=== PATIENT | female | born 1995 | race Native Hawaiian/Other Pacific Islander ===

== ENCOUNTER 2016-11-17 17:04 | Inpatient (IN) | payer OTHER ==
[2016-11-17] MEDS ORDERED: Sodium Chloride 0.9% 1,000 ML IV STA (17:37)
[2016-11-17] MEDS ORDERED: Famotidine 20mg/50ml 20 MG/50 ML BAG IV STA (17:37)
[2016-11-17] MEDS ORDERED: cefTRIAXone 1 gm 1 GM/100 ML BAG IV STA (17:42)
--- NOTE | 2016-11-17 17:47 | ED PDOC ---
Arrival/HPI - General Chief Complaint: GI Problem Time Seen by Provider: 11/17/16 17:16 Historian: EMS - History of Present Illness Narrative History of Present Illness (Text): 11/17/16 17:47 21 year old female, 3 months , >10 lb weight loss over 1 month, sent to the emergency department by OB for nausea and vomiting. Patient reports LMP August 24. Symptom Onset: Gradual Symptom Course: Unchanged Modifying Factors (Text): None Associated Symptoms (Text): None Past Medical History - Provider Review Nursing Documentation Reviewed: Yes - Psychiatric Hx Psychophysiologic Disorder: No Hx Substance Use: No Family/Social History - Physician Review Nursing Documentation Reviewed: Yes Family/Social History: Unknown Family HX Smoking Status: Never Smoked Hx Alcohol Use: No Hx Substance Use: No Allergies/Home Meds Allergies/Adverse Reactions: Allergies No Known Allergies Allergy (Verified 11/17/16 17:10) Home Medications: Home Meds Medication Instructions Recorded Confirmed No Known Home Med 11/17/16 11/17/16 Review of Systems - Physician Review All systems were reviewed & negative as marked: Yes Physical Exam - Physical Exam Narrative Physical Exam (Text): - Review of Systems Constitutional: Weight Change absent: Fatigue, Fevers Eyes: Normal ENT: Normal Respiratory: Normal absent: SOB, Cough, Sputum Cardiovascular: Normal absent: Chest pain, Palpitations, Syncope Gastrointestinal: Nausea, Vomiting absent: Abdominal pain, Diarrhea Genitourinary: Normal. absent: Dysuria, Frequency, Hematuria Musculoskeletal: Normal. absent: Arthralgias, Back Pain, Neck Pain Skin: Normal Neurological: Normal absent: Focal Weakness Endocrine: Normal Hemo/Lymphatic: Normal Psychiatric: Normal - Physical exam Patient appears cachectic, speaking full sentences without difficulty - Systems Exam Head: Present: Atraumatic, Normocephalic Pupils: Present: PERRL Extraocular Muscles: Present: EOMI Conjunctiva: Present: Normal Mouth: Present: Dry Mucous Membranes Neck: Present: Normal Range of Motion. No: MIDLINE TENDERNESS, Paraspinal Tenderness Respiratory/Chest: Present: Clear to Auscultation, Good Air Exchange. No: Respiratory Distress, Accessory Muscle Use, Tachypneic Cardiovascular: Present: tachy, Normal S1, S2, Peripheral Pulses Present. No: Murmurs Abdomen: Present: Normal Bowel Sounds, No: Tenderness, Peritoneal Signs, Rebound, Guarding Back: Present: Normal Inspection. No: Midline Tenderness, Paraspinal Tenderness Upper Extremity: Present: Normal Inspection. No: Cyanosis, Edema Lower Extremity: Present: Normal Inspection. No: Edema Neurological: Present: GCS=15, Speech Normal, cranial nerves II through XII fully intact with no cerebellar abnormality, neuro-sensory fully intact. No focal neurological deficits. Skin: Present: Warm, Dry, Normal Color. No: Rashes Lymphatic: Present: OX3, NI, NC Psychiatric: Present: Alert, Oriented x 3, Normal Insight, Normal Concentration Vital Signs Reviewed: Yes Vital Signs Temp Pulse Resp BP Pulse Ox 11/17/16 19:07 76 18 104/67 98 11/17/16 17:10 97.6 F 110 H 17 103/73 99 Temperature: Afebrile Blood Pressure: Normal Pulse: Tachycardic Respiratory Rate: Normal Appearance: Positive for: Non-Toxic, Comfortable Pain Distress: None Mental Status: Positive for: Alert and Oriented X 3 Medical Decision Making ED Course and Treatment: Impression: 21 year old female, 3 months , >10 lb weight loss over 1 month, sent to the emergency department by [employer] for nausea and vomiting. On physical exam, patient appears dehydrated and cachectic. Plan: -- Pepcid, Rocephin, Zofran -- IV fluids -- Labs -- Reassess and disposition Progress Notes: 11/17/16 17:42 Case discussed with patient's FENCE MAKER Dr. Mackenzie who states the patient was diagnosed with a UTI last week, and has not been able to tolerate PO due to nausea/vomiting. She states she has not been able to control symptoms with Diclegis. She states she agrees the patient needs to be admitted but was hesitant. Asked to give Zofran, fluids, Rocephin, and call her back with the results. 11/17/16 20:28 pt's K decreased k, mg, nacl ordered dw Dr. Mackenzie, accepted pt to her service on telemetry pt and agreeable with plan - Lab Interpretations Lab Results: 11/17/16 18:00 11/17/16 18:00 Lab Results 11/17/16 18:00: Phosphorus 4.0, Magnesium 2.3 H 11/17/16 18:00: Sodium 127 L, Potassium 2.9 L*, Chloride 86 L, Carbon Dioxide 24 , Anion Gap 20, BUN 7, Creatinine 0.4 L, Est GFR ( Amer) > 60, Est GFR ( Non-Af Amer) > 60, Random Glucose 89, Calcium 9.7, Total Bilirubin 1.5 H, AST 195 H, ALT 641 H, Alkaline Phosphatase 160 H, Total Protein 8.0, Albumin 4.2, Globulin 3.8, Albumin/Globulin Ratio 1.1 11/17/16 18:00: PT 11.9 H, INR 1.10 H, APTT 27.2 11/17/16 18:00: WBC 6.3, RBC 4.80, Hgb 11.8 L, Hct 33.5 L, MCV 69.8 L, MCH 24.6 L, MCHC 35.2, RDW 20.6 H, Plt Count 180, Gran % 74.6 H, Lymph % (Auto) 14.7 L, [place] % (Auto) 10.3 H, Eos % (Auto) 0.2 L, Baso % (Auto) 0.2, Gran # 4.73, Lymph # 0.9 L, [place] # 0.7 H, Eos # 0.0, Baso # 0.01 11/17/16 16:10: Urine Color Dark yellow, Urine Appearance Sl cloudy, Urine pH 6.5, Ur Specific [place] 1.025, Urine Protein 100 H, Urine Glucose (UA) Negative , Urine Ketones >=80, Urine Blood Small H, Urine Nitrate Negative, Urine Bilirubin Moderate H, Urine Urobilinogen >=8.0, Ur Leukocyte Esterase Trace H, Urine RBC 1 - 3, Urine WBC 5 - 10, Ur Epithelial Cells Many, Urine Bacteria Mod - RAD Interpretation Radiology Orders: 11/17/16 20:17 AGE [US] Stat - Medication Orders Current Medication Orders: Acetaminophen (Tylenol 325mg Tab) 650 mg PO Q6H PRN PRN Reason: Pain, Mild (1-3) Last Admin: 11/18/16 16:50 Dose: 650 mg Re-Assess: RAHEL Pain/Vitals Document 11/18/16 19:49 AP (Rec: 11/18/16 19:49 AP [facility] [id number]) Pain Reassessment Is This A Pain ReAssessment? Yes Presence of Pain Presence of Pain No Ceftriaxone Sodium (Rocephin 1 Gram Ivpb) 1 gm in 100 mls @ 100 mls/hr IVPB DAILY DOMINIQUE PRN Reason: Protocol Last Admin: 11/18/16 11:11 Dose: 100 mls/hr Dextrose/Sodium Chloride (Dextrose 5%/0.9% Ns 1000 Ml) 1,000 mls @ 125 mls/hr IV .Q8H [facility] Last Admin: 11/19/16 02:53 Dose: 125 mls/hr Ondansetron HCl (Zofran Inj) 8 mg IVP Q6H PRN PRN Reason: Nausea/Vomiting Propylthiouracil (Propylthiouracil) 50 mg PO TID [facility] Last Admin: 11/18/16 17:47 Dose: Not Given Non-Admin Reason: Patient Refused Discontinued Medications Bisacodyl (Dulcolax) 5 mg PO ONCE ONE Stop: 11/18/16 06:56 Last Admin: 11/18/16 07:07 Dose: 5 mg Famotidine (Pepcid 20mg/50ml Premix) 20 mg in 50 mls @ 100 mls/hr IV STAT STA Stop: 11/17/16 18:06 Last Admin: 11/17/16 17:55 Dose: 100 mls/hr Sodium Chloride (Sodium Chloride 0.9%) 1,000 mls @ 1,000 mls/hr IV .Q1H STA Stop: 11/17/16 18:36 Last Admin: 11/17/16 18:00 Dose: 1,000 mls/hr Ceftriaxone Sodium (Rocephin 1 Gram Ivpb) 1 gm in 100 mls @ 200 mls/hr IV STAT STA PRN Reason: Protocol Stop: 11/17/16 18:11 Last Admin: 11/17/16 18:14 Dose: 200 mls/hr Magnesium Sulfate/Dextrose (Magnesium Sulfate 1 Gm/100 Ml D5w) 1 gm in 100 mls @ 100 mls/hr IVPB ONCE ONE Stop: 11/17/16 20:35 Last Admin: 11/17/16 22:26 Dose: Potassium Chloride (Potassium Chloride 20 Meq/100 Ml) 20 meq in 100 mls @ 50 mls/hr IVPB Q2H [facility] Stop: 11/17/16 23:44 Last Admin: 11/17/16 22:53 Dose: 50 mls/hr Dextrose/Sodium Chloride (Dextrose 5%/0.9% Ns 1000 Ml) 1,000 mls @ 125 mls/hr IV .Q8H DOMINIQUE Stop: 11/18/16 20:29 Last Admin: 11/18/16 09:29 Dose: 125 mls/hr Sodium Chloride (Sodium Chloride 0.9%) 1,000 mls @ 999 mls/hr IV .Q1H1M STA Stop: 11/18/16 10:36 Last Admin: 11/18/16 11:00 Dose: 999 mls/hr Ondansetron HCl (Zofran Inj) 4 mg IVP STAT STA Stop: 11/17/16 17:44 Last Admin: 11/17/16 18:11 Dose: 4 mg Ondansetron HCl (Zofran Inj) 4 mg IVP Q4H DOMINIQUE Last Admin: 11/18/16 05:08 Dose: 4 mg Ondansetron HCl (Zofran Inj) 4 mg IVP Q8H PRN PRN Reason: Nausea/Vomiting Last Admin: 11/18/16 18:51 Dose: 4 mg Ondansetron HCl (Zofran Inj) 4 mg IVP STAT STA Stop: 11/18/16 23:28 Last Admin: 11/18/16 23:30 Dose: 4 mg Potassium Chloride (K-Dur 20 Meq Er Tab) 40 meq PO STAT STA Stop: 11/17/16 19:37 Last Admin: 11/17/16 20:13 Dose: 40 meq - Scribe Statement The provider has reviewed the documentation as recorded by the Javier Hammond Provider Scribe Attestation: All medical record entries made by the Javier were at my direction and personally dictated by me. I have reviewed the chart and agree that the record accurately reflects my personal performance of the history, physical exam, medical decision making, and the department course for this patient. I have also personally directed, reviewed, and agree with the discharge instructions and disposition. Disposition/Present on Arrival - Present on Arrival Any Indicators Present on Arrival: No History of DVT/PE: No History of Uncontrolled Diabetes: No Urinary Catheter: No History of Decub. Ulcer: No History Surgical Site Infection Following: None - Disposition Have Diagnosis and Disposition been Completed?: Yes Diagnosis: Hyperemesis gravidarum Disposition: HOSPITALIZED Disposition Time: 20:31 Patient Plan: Admission Patient Problems: Current Active Problems Problem Status Onset Hyperemesis gravidarum Acute Hypokalemia Acute Condition: FAIR
[2016-11-17 18:13] LABS: ADD MANUAL DIFF? NO
[2016-11-17 18:17] LABS: PH,URINE 6.5 (4.7-8.0); URINE BILIRUBIN MODERATE (NEGATIVE); URINE BLOOD SMALL (NEGATIVE); URINE GLUCOSE (UA) NEGATIVE (NEGATIVE); URINE KETONE >=80 mg/dL (NEGATIVE); URINE LEUKOCYTE ESTERASE TRACE Leu/uL (NEGATIVE); URINE PROTEIN 100 mg/dL (<30 mg/dL); URINE UROBILINOGEN >=8.0 E.U./dL (<1 E.U./dL)
[2016-11-17 18:17] LABS: BASO # 0.01 K/mm3 (0.0-2.0); BASO % 0.2 % (0.0-3.0); EOS % 0.2 % (1.5-5.0); GRAN # 4.73 (1.4-6.5); GRAN % 74.6 % (50.0-68.0); HEMATOCRIT 33.5 % (36.0-48.0); LYMPH # 0.9 (1.2-3.4); LYMPH % 14.7 % (22.0-35.0); MEAN CELL VOLUME 69.8 fL (80.0-105.0); MEAN CORPUSCULAR HEMOGLOBIN 24.6 pg (25.0-35.0); MEAN CORPUSCULAR HGB CONC 35.2 g/dl (31.0-37.0); MONO # 0.7 (0.1-0.6); MONO % 10.3 % (1.0-6.0); PLATELET COUNT 180 10^3/uL (120.0-450.0); RED CELL DISTRIBUTION WIDTH 20.6 % (11.5-14.5); WHITE BLOOD COUNT 6.3 10^3/ul (4.5-11.0)
[2016-11-17 18:22] LABS: URINE APPEARANCE SL CLOUDY (CLEAR); URINE COLOR DARK YELLOW (YELLOW)
[2016-11-17 18:29] LABS: INR 1.1 (0.93-1.08); PARTIAL THROMBOPLASTIN TIME 27.2 Seconds (23.7-30.8)
[2016-11-17 18:34] LABS: URINE EPITHELIAL CELLS MANY /hpf (0-5)
[2016-11-17 18:35] LABS: ALB/GLOB RATIO 1.1 (1.1-1.8); ALKALINE PHOSPHATASE 160 U/L (38-133); ALT/SGPT 641 U/L (7-56); AST/SGOT 195 U/L (15-39); BILIRUBIN,TOTAL 1.5 mg/dL (0.2-1.3); BLOOD UREA NITROGEN 7 mg/dL (7-21); CALCIUM 9.7 mg/dL (8.4-10.5); CARBON DIOXIDE 24 mmol/L (21-33); CHLORIDE 86 mmol/L (98-107); GFR AFRICAN-AMERICAN > 60; GLUCOSE,RANDOM 89 mg/dL (70-110); SODIUM 127 mmol/L (132-148)
[2016-11-17 18:35] LABS: URINE BACTERIA MOD (NEG)
[2016-11-17 18:41] LABS: POTASSIUM 2.9 mmol/L (3.6-5.0)
[2016-11-17] MEDS ORDERED: Potassium Chloride 20 mEq ER Tab PO STA (19:36)
[2016-11-17] MEDS ORDERED: Magnesium Sulfate 1 gm in D5W 1 GM/100 ML BAG IVPB ONE (19:36)
[2016-11-17 20:03] LABS: MAGNESIUM 2.3 mg/dL (1.7-2.2)
[2016-11-17] MEDS: Dextrose 5%/0.9% NS 1,000 ML IV SCH (20:36)
--- NOTE | 2016-11-17 22:07 | US ---
EXAM: US After First Trimester, Transabdominal CLINICAL HISTORY: 21 years old, female; Pain; complicated by abdominal or pelvic pain; Lower; First trimester; Gestational age or lmp: 12 weeks; ; Additional info: 12 weeks TECHNIQUE: Real-time transabdominal obstetrical ultrasound of the maternal pelvis and a second or third trimester with image documentation. COMPARISON: US - OB TRANSVAGINAL 10/05/2016 4:40:10 PM FINDINGS: Uterus: There is a gestational sac within the endometrial canal. [place] rump length measurement correlates with an estimated gestational age of 12 weeks. cardiac activity is seen with a heart rate of 156 beats per minute. Adnexa: Unremarkable evaluation of the right ovary. Left ovary not visualized. Free fluid: None. IMPRESSION: Limited evaluation of single live IUP as above. Followup imaging recommended.
[2016-11-18] MEDS: Dextrose 5%/0.9% NS 1,000 ML IV SCH ×3 (00:59→18:49)
[2016-11-18 01:56] LABS: BLOOD UREA NITROGEN 2 mg/dL (7-21); CALCIUM 8.4 mg/dL (8.4-10.5); CARBON DIOXIDE 24 mmol/L (21-33); CHLORIDE 99 mmol/L (98-107); GFR AFRICAN-AMERICAN > 60; GLUCOSE,RANDOM 122 mg/dL (70-110); POTASSIUM 3.4 mmol/L (3.6-5.0); SODIUM 129 mmol/L (132-148)
--- NOTE | 2016-11-18 05:56 | CP.PCM.PN ---
Subjective - Date & Time of Evaluation Date of Evaluation: 11/18/16 Time of Evaluation: 05:55 - Subjective Subjective: Patient was seen at bedside. Complained of LUQ and LLQ pain, mild, intermittent, no radiation. States that it was at 7 on 1-10 scale about 15 minutes ago when it began this time, now at 6 on 1-10 scale. States that it is getting better.Had similar pain in the past for which she did not do anything and it was relieved. Denies any nausea or vomiting now. No diarrhoea. Received Pepcid. Medical record was reviewed. This 21 year old [place] woman was admitted with hyperemesis gravidorum , hypokalemia. Has no significant PMH except fibroid, ovarian cyst. 100/63, 96% RA. Objective - Vital Signs/Intake and Output Vital Signs (last 24 hours): Temp Pulse Resp BP Pulse Ox 98.6 F 83 20 107/64 98 11/18/16 00:12 11/18/16 02:00 11/18/16 00:12 11/18/16 00:12 11/17/16 19:07 - Medications Medications: Current Medications Dextrose/Sodium Chloride (Dextrose 5%/0.9% Ns 1000 Ml) 1,000 mls @ 125 mls/hr IV .Q8H DOMINIQUE Stop: 11/18/16 20:29 Last Admin: 11/18/16 00:59 Dose: 125 mls/hr Ondansetron HCl (Zofran Inj) 4 mg IVP Q4H DOMINIQUE Last Admin: 11/18/16 05:08 Dose: 4 mg - Labs Labs: 11/18/16 01:05 PT 11.9 Seconds (9.9-11.8) H 11/17/16 18:00 INR 1.10 (0.93-1.08) H 11/17/16 18:00 APTT 27.2 Seconds (23.7-30.8) 11/17/16 18:00 - Constitutional Appears: Well, No Acute Distress - Head Exam Head Exam: ATRAUMATIC, NORMAL INSPECTION, NORMOCEPHALIC - Eye Exam Eye Exam: Normal appearance - ENT Exam ENT Exam: Mucous Membranes Dry - Neck Exam Neck Exam: Normal Inspection - Respiratory Exam Respiratory Exam: NORMAL BREATHING PATTERN - Cardiovascular Exam Cardiovascular Exam: absent: JVD - GI/Abdominal Exam GI & Abdominal Exam: Soft, Normal Bowel Sounds. absent: Tenderness - Rectal Exam Rectal Exam: Deferred - Extremities Exam Extremities Exam: Normal Inspection - Back Exam Back Exam: NORMAL INSPECTION - Neurological Exam Neurological Exam: Alert, Oriented x3 - Psychiatric Exam Psychiatric exam: Normal Affect, Normal Mood - Skin Skin Exam: Dry Assessment and Plan - Assessment and Plan (Free Text) Assessment: LUQ/LLQ pain. Hyperemesis Gravidorum. Hypokalemia. Dehydration. Plan: Placed a call to . Tylenol and dulcolax were ordered by . IV Zofran was discontinued. Zofran ODT was ordered. Continue present management.
[2016-11-18 06:44] LABS: BASO # 0.02 K/mm3 (0.0-2.0); BASO % 0.4 % (0.0-3.0); EOS % 0.8 % (1.5-5.0); GRAN # 3.07 (1.4-6.5); GRAN % 63.2 % (50.0-68.0); HEMATOCRIT 29.7 % (36.0-48.0); LYMPH # 1.3 (1.2-3.4); LYMPH % 26.1 % (22.0-35.0); MEAN CELL VOLUME 70.2 fL (80.0-105.0); MEAN CORPUSCULAR HEMOGLOBIN 24.1 pg (25.0-35.0); MEAN CORPUSCULAR HGB CONC 34.3 g/dl (31.0-37.0); MONO # 0.5 (0.1-0.6); MONO % 9.5 % (1.0-6.0); PLATELET COUNT 140 10^3/uL (120.0-450.0); RED CELL DISTRIBUTION WIDTH 21.3 % (11.5-14.5); WHITE BLOOD COUNT 4.9 10^3/ul (4.5-11.0)
[2016-11-18] MEDS ORDERED: Bisacodyl 5mg EC Tab PO ONE (06:55)
[2016-11-18 07:06] LABS: ADD MANUAL DIFF? NO; FREE T4 2.62 ng/dL (0.78-2.19)
[2016-11-18 07:20] LABS: THYROID STIMULATING HORMONE < 0.02 mIU/mL (0.46-4.68)
[2016-11-18 09:30] LABS: URINE BILIRUBIN NEGATIVE (NEGATIVE); URINE BLOOD TRACE-INTACT (NEGATIVE); URINE GLUCOSE (UA) NEGATIVE (NEGATIVE); URINE KETONE 15 mg/dL (NEGATIVE); URINE LEUKOCYTE ESTERASE NEGATIVE Leu/uL (NEGATIVE); URINE PROTEIN NEGATIVE mg/dL (<30 mg/dL)
[2016-11-18 09:30] LABS: BILIRUBIN,DIRECT 0.7 mg/dL (0.0-0.4); BILIRUBIN,TOTAL 0.8 mg/dL (0.2-1.3)
--- NOTE | 2016-11-18 09:30 | CP.PCM.HP ---
History of Present Illness - History of Present Illness History of Present Illness: 21 y/o @ 12.2 wks GA by First poonam [place] with severe nause and vomiting more htan 4 weeks unable to keep majority of po intake down. pt has failed oral diclegeis, zofran, vitmain b 6 therapy. pt is able to keep verylittle water and certain frutis and snack donw. pt reports nause the entire day with multple episodies of non bloody and non bilious vomiting all day. Pt seen in office and had more than 10 pound weight loss of past 4 weeks. pt reports feeling tired and weak, denies any bleeding, pain, lighthteandess, dizzyness, CP, SOB. Pt also states was seen [place] [facility] [place] dx with UTI but was unable to tolerate po antibitoc. Pt also reports severe constiatpion with straining last BM yesterday. OB: P0 FIELD AIDE: denie shx of abnormal pap, fibroids, ovarian cyst , STI PMH: dneies PSH: denies FHX: non contirubitory SHX: negateive etoh/tobacc/drugs MEDS: PNV NKDA Present on Admission - Present on Admission Any Indicators Present on Admission: No Review of Systems - Constitutional Constitutional: As Per HPI, Fatigue - EENT Nose/Mouth/Throat: As Per HPI - Cardiovascular Cardiovascular: As Per HPI - Respiratory Respiratory: As Per HPI - Gastrointestinal Gastrointestinal: As Per HPI - Genitourinary Genitourinary: As Per HPI - Reproductive: Female Reproductive:Female: As Per HPI - Menstruation Menstruation: As Per HPI Past Patient History - Infectious Disease Hx of Infectious Diseases: None - Past Medical History & Family History Past Medical History?: No Past Family History: Reviewed and not pertinent - Past Social History Smoking Status: Never Smoked Chewing Tobacco Use: No Cigar Use: No Alcohol: None Home Situation {Lives}: With Family - CARDIAC Hx Cardiac Disorders: No - PULMONARY Hx Respiratory Disorders: No - NEUROLOGICAL Hx Neurological Disorder: No - HEENT Hx HEENT Problems: No - RENAL Hx Chronic Kidney Disease: No - ENDOCRINE/METABOLIC Hx Endocrine Disorders: No - HEMATOLOGICAL/ONCOLOGICAL Hx Blood Disorders: No - INTEGUMENTARY Hx Dermatological Problems: No - MUSCULOSKELETAL/RHEUMATOLOGICAL Hx Musculoskeletal Disorders: No Hx Falls: No - GASTROINTESTINAL Hx Gastrointestinal Disorders: No - GENITOURINARY/GYNECOLOGICAL Hx Genitourinary Disorders: No - PSYCHIATRIC Hx Psychophysiologic Disorder: No Hx Substance Use: No - SURGICAL HISTORY Hx Surgeries: No Meds Allergies/Adverse Reactions: Allergies Allergy/AdvReac Type Severity Reaction Status Date / Time No Known Allergies Allergy Verified 11/17/16 17:10 Physical Exam - Head Exam Head Exam: ATRAUMATIC, NORMOCEPHALIC - Eye Exam Eye Exam: EOMI, Normal appearance, PERRL Pupil Exam: NORMAL ACCOMODATION - ENT Exam ENT Exam: Mucous Membranes Dry - Neck Exam Neck exam: Positive for: Full Rom - Respiratory Exam Respiratory Exam: Clear to Auscultation Bilateral, NORMAL BREATHING PATTERN - Cardiovascular Exam Cardiovascular Exam: REGULAR RHYTHM, +S1, +S2 - GI/Abdominal Exam GI & Abdominal Exam: Soft Additional comments: non tender, non distened, no guarding,no rebound tendenres,s no rigidity - Extremities Exam Extremities exam: Positive for: normal inspection Results - Vital Signs Recent Vital Signs: Last Vital Signs Temp 97.7 F 11/18/16 06:00 Pulse 84 11/18/16 06:00 Resp 18 11/18/16 06:00 BP 100/63 11/18/16 06:00 Pulse Ox 96 11/18/16 06:00 - Labs Result Diagrams: 11/18/16 05:45 11/18/16 01:05 Labs: Laboratory Results - last 24 hr 11/18/16 11/18/16 11/18/16 01:05 05:45 05:45 WBC 4.9 D RBC 4.23 Hgb 10.2 L Hct 29.7 L MCV 70.2 L MCH 24.1 L MCHC 34.3 RDW 21.3 H Plt Count 140 Gran % 63.2 Lymph % (Auto) 26.1 [place] % (Auto) 9.5 H Eos % (Auto) 0.8 L Baso % (Auto) 0.4 Gran # 3.07 Lymph # 1.3 [place] # 0.5 Eos # 0.0 Baso # 0.02 Sodium 129 L Potassium 3.4 L Chloride 99 Carbon Dioxide 24 Anion Gap 9 L BUN 2 L Creatinine 0.3 L Est GFR ( Amer) > 60 Est GFR (Non-Af Amer) > 60 Random Glucose 122 H Calcium 8.4 Magnesium Free T4 2.62 H TSH 3rd Generation < 0.02 L 11/18/16 05:45 WBC RBC Hgb Hct MCV MCH MCHC RDW Plt Count Gran % Lymph % (Auto) [place] % (Auto) Eos % (Auto) Baso % (Auto) Gran # Lymph # [place] # Eos # Baso # Sodium Potassium Chloride Carbon Dioxide Anion Gap BUN Creatinine Est GFR ( Amer) Est GFR (Non-Af Amer) Random Glucose Calcium Magnesium 1.9 Free T4 TSH 3rd Generation Assessment & Plan (1) Hypokalemia Assessment and Plan: 1. Admit 2. Hypokalemia: K rider x 2 3. IVH: NS D5 @ 125cc/hour 4. Diet: Clears, advaced as tolerated 5. N/V: Zofrn 4mg IV q 4 hours, will transition to sublingius 6. UTI: s/p Rocephin 1 gram in ER 7. Constipatin: ducloax 5mg po q day 8. Pain: tyeonol 650mg po q 6 hours prn 9. Abdominal US: FHR evlauation 10. Hypothyroid: Attempted to consult endocrine however no covering phyisican, f /u Hospalist 11. AM labs 12. DVT prophlaxis: compression stocking, scds Status: Acute (2) Hyperemesis gravidarum Assessment and Plan: 1. Admit 2. Hypokalemia: K rider x 2 3. IVH: NS D5 @ 125cc/hour 4. Diet: Clears, advaced as tolerated 5. N/V: Zofrn 4mg IV q 4 hours, will transition to sublingius 6. UTI: s/p Rocephin 1 gram in ER 7. Constipatin: ducloax 5mg po q day 8. Pain: tyeonol 650mg po q 6 hours prn 9. Abdominal US: FHR evlauation 10. Hypothyroid: Attempted to consult endocrine however no covering phyisican, f /u Hospalist 11. AM labs 12. DVT prophlaxis: compression stocking, scds Status: Acute
[2016-11-18 09:32] LABS: URINE APPEARANCE CLEAR (CLEAR); URINE COLOR YELLOW (YELLOW)
[2016-11-18] MEDS ORDERED: Sodium Chloride 0.9% 1,000 ML IV STA (09:36)
[2016-11-18 09:37] LABS: URINE BACTERIA TRACE (NEG); URINE RBC 0 - 2 /hpf (0-2)
[2016-11-18] MEDS: cefTRIAXone 1 gm 1 GM/100 ML BAG IVPB SCH (11:11)
--- NOTE | 2016-11-18 11:46 | US ---
HISTORY: elevated lft COMPARISON: None. TECHNIQUE: Sonographic evaluation of the abdomen. FINDINGS: LIVER: Measures cm. Normal echogenicity of the liver parenchyma. No mass. No intrahepatic bile duct dilatation. GALLBLADDER: Extensive cholelithiasis without wall thickening or pericholecystic fluid. COMMON BILE DUCT: Measures mm. No stones. No dilatation. PANCREAS: Unremarkable as visualized. No mass. No ductal dilatation. RIGHT KIDNEY: Measures cm. Normal echogenicity. No calculus, mass, or hydronephrosis. LEFT KIDNEY: Measures cm. Normal echogenicity. No calculus, mass, or hydronephrosis. SPLEEN: Normal in size and contour. No mass. AORTA: No aneurysmal dilatation. IVC: Unremarkable. OTHER FINDINGS: None. IMPRESSION: Extensive cholelithiasis without wall thickening or pericholecystic fluid.
--- NOTE | 2016-11-18 15:14 | CP.PCM.CON ---
<David Small - Last Filed: 11/18/16 14:47> History of Present Illness - History of Present Illness History of Present Illness: Internal Medicine Consult Note for Dr. Gutierrez This is a 21 yo F @ 12 weeks gestation who presents to [facility] with persistent nausea and vomiting over 5-6 weeks, with the latest episode lasting > 1 week. Per patient and at bedside, she began having prolonged periods of nausea and emesis during her 6th week of . She presented to [facility] [place] approximately 2-3 weeks ago during one of the periods of nausea/emesis, and was seen in the ED, given some IV fluids and antibiotics (for bacteria in the urine), and discharged to home. She reports not being able to take any of the antibiotics due to persistent emesis of all PO Meds since being sent home from [facility] [place]. Minimal PO fluid intake tolerated. She also reports being constipated x2 days, straining to move her bowels, and reports some burning with urination x 2-3 days. She is still passing flatus. Abdominal pain is diffuse, but most prominent along her left side per pt. Emesis is primarily yellow, intermittent episodes of [place]-green emesis (last > 3 days ago). Denies hematemesis, cough, fevers/chills, melena/hematochezia, hematuria, or vaginal bleeding. Only longstanding medication is vitamins. OB-Accounting Support Specialist: Primagravid at 12 weeks gestation, Denies STDs, Denies prior abdominal/ manager clinical pharmacy surgeries PMH: denies PSH: denies any past surgeries FHx: denies SHx: denies tobacco/Alcohol/Illicits/IVDA PMD: Zohaib Flowers OB-Accounting Support Specialist: Maryjane Wynn Review of Systems - Constitutional Constitutional: Weight Loss (10lbs x1 month). absent: Chills, Fever - EENT Eyes: absent: Blurred Vision, Change in Vision, Loss of Vision Ears: absent: Disequilibrium, Dizziness Nose/Mouth/Throat: absent: Dysphagia, Sore Throat, Neck Pain, Neck Mass - Cardiovascular Cardiovascular: absent: Chest Pain, Dyspnea, Irregular Heart Rhythm, Syncope - Respiratory Respiratory: absent: Cough, Dyspnea, Pain on Inspiration - Gastrointestinal Gastrointestinal: Abdominal Pain (diffusely present, most prominent at left lower quadrant and right flank posterior section), Constipation (x2 days, straining to move bowels), Nausea, Vomiting (intermittent episodes of bilious vomiting, otherwise yellow emesis, no hematemesis). absent: Coffee Ground Emesis, Diarrhea, Dysphagia, Hematemesis, Hematochezia, Melena - Genitourinary Genitourinary: Dysuria, Flank Pain (posterior portion right flank). absent: Hematuria, Pyuria - Reproductive: Female Additional comments: , Primigravid, 12 weeks gestation - Musculoskeletal Musculoskeletal: absent: Back Pain, Muscle Weakness, Neck Pain, Numbness - Integumentary Integumentary: absent: Pruritus, Rash - Neurological Neurological: absent: Focal Weakness, Loss of Vision, Syncope, Weakness, Other Visual Disturbances - Psychiatric Psychiatric: absent: Anxiety - Endocrine Endocrine: Fatigue. absent: Palpitations Past Patient History - Infectious Disease Hx of Infectious Diseases: None - Past Medical History & Family History Past Medical History?: No Past Family History: Reviewed and not pertinent - Past Social History Smoking Status: Never Smoked Chewing Tobacco Use: No Cigar Use: No Alcohol: None Home Situation {Lives}: With Family - CARDIAC Hx Cardiac Disorders: No - PULMONARY Hx Respiratory Disorders: No - NEUROLOGICAL Hx Neurological Disorder: No - HEENT Hx HEENT Problems: No - RENAL Hx Chronic Kidney Disease: No - ENDOCRINE/METABOLIC Hx Endocrine Disorders: No - HEMATOLOGICAL/ONCOLOGICAL Hx Blood Disorders: No - INTEGUMENTARY Hx Dermatological Problems: No - MUSCULOSKELETAL/RHEUMATOLOGICAL Hx Musculoskeletal Disorders: No Hx Falls: No - GASTROINTESTINAL Hx Gastrointestinal Disorders: No - GENITOURINARY/GYNECOLOGICAL Hx Genitourinary Disorders: No - PSYCHIATRIC Hx Psychophysiologic Disorder: No Hx Substance Use: No - SURGICAL HISTORY Hx Surgeries: No Meds Allergies/Adverse Reactions: Allergies Allergy/AdvReac Type Severity Reaction Status Date / Time No Known Allergies Allergy Verified 11/17/16 17:10 - Medications Medications: Current Medications Acetaminophen (Tylenol 325mg Tab) 650 mg PO Q6H PRN PRN Reason: Pain, Mild (1-3) Last Admin: 11/18/16 07:07 Dose: 650 mg Dextrose/Sodium Chloride (Dextrose 5%/0.9% Ns 1000 Ml) 1,000 mls @ 125 mls/hr IV .Q8H DOMINIQUE Stop: 11/18/16 20:29 Last Admin: 11/18/16 09:29 Dose: 125 mls/hr Ceftriaxone Sodium (Rocephin 1 Gram Ivpb) 1 gm in 100 mls @ 100 mls/hr IVPB DAILY DOMINIQUE PRN Reason: Protocol Last Admin: 11/18/16 11:11 Dose: 100 mls/hr Ondansetron HCl (Zofran Odt) 4 mg PO Q8H PRN PRN Reason: Nausea/Vomiting Propylthiouracil (Propylthiouracil) 50 mg PO TID [facility] Last Admin: 11/18/16 13:38 Dose: 50 mg Physical Exam - Constitutional Appears: Non-toxic, No Acute Distress - Head Exam Head Exam: ATRAUMATIC, NORMAL INSPECTION, NORMOCEPHALIC - Eye Exam Eye Exam: EOMI, Normal appearance. absent: Conjunctival injection, Scleral icterus Pupil Exam: absent: Irregular, Unequal - ENT Exam ENT Exam: Mucous Membranes Dry - Neck Exam Neck exam: Negative for: Lymphadenopathy, Tenderness - Respiratory Exam Respiratory Exam: Clear to Auscultation Bilateral, NORMAL BREATHING PATTERN. absent: Accessory Muscle Use, Chest Wall Tenderness, Decreased Breath Sounds, Rales, Rhonchi, Wheezes - Cardiovascular Exam Cardiovascular Exam: REGULAR RHYTHM, RRR, +S1, +S2. absent: Bradycardia, Tachycardia, Irregular Rhythm, JVD, +S4 - GI/Abdominal Exam GI & Abdominal Exam: Diminished Bowel Sounds, Soft, Tenderness (diffuse tenderness statically, worse with palpation at epigastric region, left mid- lower quadrant region, and posterior portion of right flank). absent: Distended , Firm, Guarding, Hyperactive Bowel Sounds, Hypoactive Bowel Sounds, Normal Bowel Sounds, Rigid - Extremities Exam Extremities exam: Positive for: normal capillary refill, normal inspection, pedal pulses present. Negative for: calf tenderness, pedal edema, tenderness - Back Exam Back exam: CVA tenderness (R). absent: CVA tenderness (L), paraspinal tenderness, rash noted - Neurological Exam Neurological exam: Abnormal Gait (shuffling gait 2/2 abdominal pain with ambulation, witnessed when walking back from bathroom to bed), Alert, Oriented x3 - Psychiatric Exam Psychiatric exam: Anxious, Normal Affect - Skin Skin Exam: Dry, Intact, Normal Color, Warm Results - Vital Signs Recent Vital Signs: Last Vital Signs Temp 98.1 F 11/18/16 12:00 Pulse 73 11/18/16 12:00 Resp 16 11/18/16 12:00 BP 97/63 L 11/18/16 12:00 Pulse Ox 100 11/18/16 09:30 - Labs Result Diagrams: 11/18/16 05:45 11/18/16 01:05 Labs: Laboratory Results - last 24 hr 11/18/16 11/18/16 11/18/16 01:05 05:45 05:45 WBC 4.9 D RBC 4.23 Hgb 10.2 L Hct 29.7 L MCV 70.2 L MCH 24.1 L MCHC 34.3 RDW 21.3 H Plt Count 140 Gran % 63.2 Lymph % (Auto) 26.1 Ceiba % (Auto) 9.5 H Eos % (Auto) 0.8 L Baso % (Auto) 0.4 Gran # 3.07 Lymph # 1.3 Ceiba # 0.5 Eos # 0.0 Baso # 0.02 Sodium 129 L Potassium 3.4 L Chloride 99 Carbon Dioxide 24 Anion Gap 9 L BUN 2 L Creatinine 0.3 L Est GFR ( Amer) > 60 Est GFR (Non-Af Amer) > 60 Random Glucose 122 H Calcium 8.4 Magnesium Total Bilirubin Direct Bilirubin AST ALT Alkaline Phosphatase Total Protein Albumin Globulin Albumin/Globulin Ratio Free T4 2.62 H TSH 3rd Generation < 0.02 L Urine Color Urine Appearance Urine pH Ur Specific Cornelius Urine Protein Urine Glucose (UA) Urine Ketones Urine Blood Urine Nitrate Urine Bilirubin Urine Urobilinogen Ur Leukocyte Esterase Urine RBC Urine WBC Urine Bacteria 11/18/16 11/18/16 11/18/16 05:45 06:30 09:17 WBC RBC Hgb Hct MCV MCH MCHC RDW Plt Count Gran % Lymph % (Auto) Ceiba % (Auto) Eos % (Auto) Baso % (Auto) Gran # Lymph # Ceiba # Eos # Baso # Sodium Potassium Chloride Carbon Dioxide Anion Gap BUN Creatinine Est GFR ( Amer) Est GFR (Non-Af Amer) Random Glucose Calcium Magnesium 1.9 Total Bilirubin 0.8 Direct Bilirubin 0.7 H AST 145 H ALT 494 H Alkaline Phosphatase 119 Total Protein 6.0 Albumin 3.0 Globulin 3.0 Albumin/Globulin Ratio 1.0 L Free T4 TSH 3rd Generation Urine Color Yellow Urine Appearance Clear Urine pH 6.0 Ur Specific Cornelius 1.010 Urine Protein Negative Urine Glucose (UA) Negative Urine Ketones 15 H Urine Blood Trace-intact H Urine Nitrate Negative Urine Bilirubin Negative Urine Urobilinogen 4.0 H Ur Leukocyte Esterase Negative Urine RBC 0 - 2 Urine WBC 1 - 3 Urine Bacteria Trace Assessment & Plan - Assessment and Plan (Free Text) Assessment: This is a 21 yo F @ 12 weeks gestation who presents to [facility] [place] with persistent nausea and vomiting over 5-6 weeks, with the latest episode lasting > 1 week. She is being worked up for hyperemesis gravidarium. Plan: 1) Chronic intractable nausea/emesis -Hyperemesis gravidarium vs cholecystitis vs appendicitis vs gastritis vs 2/2 UTI vs hyperthyroidism; unlikely stomach flu given extended timeframe of sx -Persisting from 6-12 weeks of gestation, consistent with timeline for hyperemesis gravidarium -no leukocytosis, afebrile, so less likely appendicitis -Abd US: Extensive cholelithiasis without wall thickening or pericholecystic fluid -Initial UA suspicious for UTI but dirty catch due to many epithelial cells, repeat UA only notable for trace bacteria; cover with Rocephin given -TSH low and T4 elevated, Endo consulted, appreciate all recs -GI consulted, appreciate all recs -IVF, NPO for bowel rest, replete electrolytes as needed -Urine culture pending, hepatitis panel pending -Further management as per Primary 2) Hyperthyroid -elevated T4, low TSH -No personal or family hx of thyroid disease as per pt -Endocrine consulted, appreciate all recs 3) Electrolyte disturbances -predominantly 2/2 chronic emesis and inability to tolerate PO -IV repletion for electrolytes as needed, continue to monitor Dispo: Telemetry, pending eval by GI and Endo, on Bowel rest and IVF, electrolyte repletion as needed FEN: NPO, D5NS 125cc/hr Access: Peripheral IV Consults: IM, GI, Endo Ppx: Zofran for Nausea/emesis, SCDs for DVTs Patient seen and discussed with attending, Dr. Gutierrez - Date & Time Date: 11/18/16 Time: 09:15 <Rosalinda Gutierrez - Last Filed: 11/18/16 17:05> Meds - Medications Medications: Current Medications Acetaminophen (Tylenol 325mg Tab) 650 mg PO Q6H PRN PRN Reason: Pain, Mild (1-3) Last Admin: 11/18/16 16:50 Dose: 650 mg Dextrose/Sodium Chloride (Dextrose 5%/0.9% Ns 1000 Ml) 1,000 mls @ 125 mls/hr IV .Q8H DOMINIQUE Stop: 11/18/16 20:29 Last Admin: 11/18/16 09:29 Dose: 125 mls/hr Ceftriaxone Sodium (Rocephin 1 Gram Ivpb) 1 gm in 100 mls @ 100 mls/hr IVPB DAILY DOMINIQUE PRN Reason: Protocol Last Admin: 11/18/16 11:11 Dose: 100 mls/hr Ondansetron HCl (Zofran Odt) 4 mg PO Q8H PRN PRN Reason: Nausea/Vomiting Propylthiouracil (Propylthiouracil) 50 mg PO TID [facility] Last Admin: 11/18/16 13:38 Dose: 50 mg Results - Vital Signs Recent Vital Signs: Last Vital Signs Temp 98.1 F 11/18/16 12:00 Pulse 77 11/18/16 14:00 Resp 16 11/18/16 12:00 BP 97/63 L 11/18/16 12:00 Pulse Ox 100 11/18/16 09:30 - Labs Result Diagrams: 11/18/16 05:45 11/18/16 01:05 Labs: Laboratory Results - last 24 hr 11/18/16 11/18/16 11/18/16 01:05 05:45 05:45 WBC 4.9 D RBC 4.23 Hgb 10.2 L Hct 29.7 L MCV 70.2 L MCH 24.1 L MCHC 34.3 RDW 21.3 H Plt Count 140 Gran % 63.2 Lymph % (Auto) 26.1 Ceiba % (Auto) 9.5 H Eos % (Auto) 0.8 L Baso % (Auto) 0.4 Gran # 3.07 Lymph # 1.3 Ceiba # 0.5 Eos # 0.0 Baso # 0.02 Sodium 129 L Potassium 3.4 L Chloride 99 Carbon Dioxide 24 Anion Gap 9 L BUN 2 L Creatinine 0.3 L Est GFR ( Amer) > 60 Est GFR (Non-Af Amer) > 60 Random Glucose 122 H Calcium 8.4 Magnesium Total Bilirubin Direct Bilirubin AST ALT Alkaline Phosphatase Total Protein Albumin Globulin Albumin/Globulin Ratio Free T4 2.62 H TSH 3rd Generation < 0.02 L Urine Color Urine Appearance Urine pH Ur Specific Cornelius Urine Protein Urine Glucose (UA) Urine Ketones Urine Blood Urine Nitrate Urine Bilirubin Urine Urobilinogen Ur Leukocyte Esterase Urine RBC Urine WBC Urine Bacteria 11/18/16 11/18/16 11/18/16 05:45 06:30 09:17 WBC RBC Hgb Hct MCV MCH MCHC RDW Plt Count Gran % Lymph % (Auto) Ceiba % (Auto) Eos % (Auto) Baso % (Auto) Gran # Lymph # Ceiba # Eos # Baso # Sodium Potassium Chloride Carbon Dioxide Anion Gap BUN Creatinine Est GFR ( Amer) Est GFR (Non-Af Amer) Random Glucose Calcium Magnesium 1.9 Total Bilirubin 0.8 Direct Bilirubin 0.7 H AST 145 H ALT 494 H Alkaline Phosphatase 119 Total Protein 6.0 Albumin 3.0 Globulin 3.0 Albumin/Globulin Ratio 1.0 L Free T4 TSH 3rd Generation Urine Color Yellow Urine Appearance Clear Urine pH 6.0 Ur Specific Cornelius 1.010 Urine Protein Negative Urine Glucose (UA) Negative Urine Ketones 15 H Urine Blood Trace-intact H Urine Nitrate Negative Urine Bilirubin Negative Urine Urobilinogen 4.0 H Ur Leukocyte Esterase Negative Urine RBC 0 - 2 Urine WBC 1 - 3 Urine Bacteria Trace Attending/Attestation - Attestation I have personally seen and examined this patient.: Yes I have fully participated in the care of the patient.: Yes I have reviewed all pertinent clinical information: Yes Notes (Text): 11/18/16 17:01 attending note; Patient seen and examined with resident. patient's by the bed side. This is a 21 year old Femal @ 12 weeks gestation who presents to [facility] [place] with persistent nausea and vomiting over 5-6 weeks, with the latest episode lasting > 1 week.Patient is admitted for dehydration/electrolyte imbalance secondary to hyperemesis gravidarum. Continue IVF. continue electrolyte supplementation. Constipation; last bowel movement 10 days ago. Dulcolax one dose given. prune juice ordered. Elevated LFTs; improving. Abdominal ultrasound showed cholelithiasis without cholecystitis. GI evaluation With Dr. Stephenson recommended. pain management with Tylenol when necessary. Zofran for nausea. Advance diet as tolerated. Hyperthyroidism; endocrinology evaluation appreciated. Patient is started on propylthiouracil. Monitor the patient closely. patient needs close follow-up with MANAGER MED SURG DR. wynn. Message left with Dr. Wynn's office for call back. hospitalist service will continue to follow the patient closely. 11/18/16 17:05
--- NOTE | 2016-11-18 16:20 | CON ---
DATE: 11/18/2016 Seen and examined at the beside earlier today. REQUEST FOR CONSULT: For elevated liver enzymes. HISTORY OF PRESENT ILLNESS: This is a 21-year-old female who is currently 12 weeks in her first trimester with no other significant medical history. Came to the Emergency Room with complaints of severe nausea and vomiting for more than 4 weeks. The patient states she is unable to keep any food down. The patient does report morning sickness, but has had increased nausea and vomiting. The patient states she is able to tolerate a little bit of water and some foods. Otherwise, she cannot tolerate any large meals. She denies any hemetemesis and nonbilious vomiting. She was last seen by her OB/ LINK TRAINER MECHANIC on 11/17 and was found to have a 10-pound weight loss. The patient does report feeling fatigue and weak. Denies any shortness of breath or chest pain. No dizziness. The patient also complains of severe constipation. Her last bowel movement she reports was at least 1-1/2 weeks ago. Denies any bleeding. Is not on any oral laxatives. During routine labs, patient initially on admission yesterday was noted to have elevated liver enzymes and this morning's labs also report elevated liver enzymes. The patient's is currently at the bedside. PAST MEDICAL HISTORY: No significant medical history. Denies any cardiac history, diabetes or pulmonary problems. PAST SURGICAL HISTORY: Denies. FAMILY HISTORY: Noncontributory at this time. SOCIAL HISTORY: Denies tobacco, ETOH, or drugs. MEDICATIONS: Reviewed as per MAR. ALLERGIES: No known drug allergies. REVIEW OF SYSTEMS: Systems reviewed with positive findings, see HPI. VITAL SIGNS: Temperature is 97.7, blood pressure 91/60, pulse is 101, respirations 18, 100% on room air. LABORATORY DATA: From today/this morning: WBC of 4.9, H and H are hemoglobin 10.2 and hematocrit 29.7, platelets are 140. PT is 11.9, INR 1.10, PTT is 27.2. Chem: Sodium is 129, her K is 3.4 (this has actually improved compared to yesterday at 2.9), BUN is 2, creatinine 0.3. Her total bilirubin today is 0.8, on admission it was 1.5. Direct bili is 0.7. Her AST is 145, ALT is 494, alkaline phosphatase is 119 - this does show some improvement compared to yesterday; the patient's alk phos was 160. Magnesium is 1.9. Urinalysis is negative for any leukoesterase, trace blood, negative for protein. ultrasound was done and it shows single live IUP as above. There is a gestational sac within the endometrial canal. Haivana Nakya-rump length measurements correlate with an estimated gestational age of 12 weeks. Fatal cardiac activity is seen and heart rate of 156 beats per minute. She also went for an abdominal ultrasound and that shows extensive cholelithiasis without wall thickening or pericholecystic fluid. Common bile duct: There is no measurement but reports no stones, no dilatation. PHYSICAL EXAMINATION: HEENT: Sclerae are anicteric. NECK: Supple. CARDIAC: S1, S2. LUNG SOUNDS: Clear. ABDOMEN: With bowel sounds. Soft. Abdomen is nontender, no rebound or guarding or organomegaly. Mildly distended. LOWER EXTREMITIES: Positive pedal pulses, no edema. NEUROLOGIC: Awake, alert, and oriented. ASSESSMENT: This is a 21-year-old female who is 12 weeks gestational age in first trimester, came with intractable severe nausea and vomiting as well as 10 pound weight loss and complaints of constipation. The patient was noted to have elevated liver enzymes. Status post ultrasound show multiple gallstones, but no evidence of cholecystitis. Liver enzymes are somewhat improved. Differential is rule out common bile duct stones, also rule out infectious hepatitis. Her hepatitis panel is pending. Also consider induced liver disease. PLAN: Follow up hepatitis panel. She is status post a dose of Dulcolax. Continue IV fluids for hydration. The patient is on IV antibiotics. History of urinary tract infection. Is on Zofran p.r.n. and is also being followed by HEAVY DUTY CUSTODIAN and for endocrinology evaluation. Can consider MRCP for further evaluation. Spoke to the at the bedside. We will continue to monitor her liver enzymes. The patient with no complaints of abdominal pain. The patient was seen and case discussed with Dr. Ambrocio. Vickie ARORA cc: [id number] TT: 11/18/2016 16:19:34 Confirmation # [id number] Dictation # [id number] drake CASTILLO
--- NOTE | 2016-11-18 21:05 | CON ---
DATE: 11/18/2016 LOCATION: Room 270, bed 2. HISTORY OF PRESENT ILLNESS: This is a 21-year-old female who is now 12 weeks who was admitt ed here with intractable nausea, dyspepsia, and vomiting, and supervening dehydration and is now bein g referred for endocrine evaluation because of abnormal thyroid function studies. PAST MEDICAL HISTORY: Essentially unremarkable. FAMILY HISTORY: No known thyroid endocrinopathy. SOCIAL HISTORY: The patient is and has a very supportive and with no substance use a nd now with her first as noted. REVIEW OF SYSTEMS: Admits to generalized body weakness with easy fatigability and tiredness and subo ptimal energy level with persistent insomnia, worse in the last week or 2 prior to admission. No gustavo st pains or palpitations or PNDs, but admits to occasional bouts of shortness of breath, especially o n exertion. Her oral intake is very nil and suboptimal with marked anorexia with supervening nausea, dyspepsia and intractable vomiting episodes, worse in the last 2-3 weeks prior to admission. Admits to hyperdefecation with occasional bouts of constipation. Also admits to over 10 pounds or so weigh t loss in the last 2-3 weeks prior to admission. PHYSICAL EXAMINATION: GENERAL: This is an female in no apparent distress. VITAL SIGNS: Blood pressure of 100/70, pulse of 100 beats per minute and regular, temperature 98, re spirations 20. Height is 5 foot 2, weight is 94 pounds. HEENT: Head normocephalic. Eyes anicteric with pink conjunctivae. Fundoscopy not possible at this time. Ears, nose and throat otherwise normal. NECK: Supple. Thyroid gland is normal size with no overt thyromegaly or palpable thyroid nodules. HEART: Hyperdynamic precordium. S1, S2 is rapid and regular. LUNGS: Clear to auscultation. ABDOMEN: Flat, soft with positive bowel sounds. EXTREMITIES: No peripheral edema. Pulses are +2 bilaterally. LABORATORY DATA: Her thyroid study showed a free T4 of 2.62 with a TSH of less than 0.02. Her liver function studies are elevated with an AST of 195, ALT of 641 and alkaline phosphatase of 160 with a magnesium of 2.3, phosphorus of 4.0. Chemistries: BUN of 7, sodium 127, potassium 2.9, chloride 86, CO2 24, glucose 89, and creatinine 0.4. ASSESSMENT: This is a 21-year-old female with overt hyperthyroidism both historically, clinically, a nd biochemically, presenting here with hyperemesis gravidarum, currently at 12 weeks age of gestation and the possibility of an underlying autoimmune thyroiditis, i.e., Graves' disease versus a transien t thyrotoxicosis in the first trimester of has to be excluded at this time. There is no ov ert thyromegaly or palpable thyroid nodules at this time, nor any thyroid orbitopathy. PLAN OF MANAGEMENT: As discussed with the patient and the and family at bedside, will start her right away on medical therapy with propylthiouracil or PTU given as 50 mg p.o. t.i.d. after meals to start today. Will titrate incrementally as indicated to optimize metabolic control. Will obtain a thyroid stimulating immunoglobulin and a thyroid peroxidase antibody, which will confirm and/or in dicate the presence of underlying thyroid autoimmunity. Will obtain a total and free T4 and TSH jennifer rrow morning again and adjust her dose regimen accordingly. If clinically and metabolically stable b y tomorrow, she can be cleared for discharge and would highly recommend a referral to a perinatologis t for closer outpatient metabolic and clinical followup. Will continue the PTU given as 50 mg t.i.d. after meals as ordered. Will follow. Saundra Hill MD cc: [id number] TT: 11/18/2016 21:04:38 Confirmation # [id number] Dictation # [id number] dn
[2016-11-19] MEDS: Dextrose 5%/0.9% NS 1,000 ML IV SCH ×3 (02:53→20:03)
[2016-11-19 07:49] LABS: ADD MANUAL DIFF? NO
[2016-11-19 08:00] LABS: BASO # 0.01 K/mm3 (0.0-2.0); BASO % 0.1 % (0.0-3.0); EOS % 0.2 % (1.5-5.0); GRAN # 7.61 (1.4-6.5); GRAN % 81.3 % (50.0-68.0); HEMATOCRIT 30.4 % (36.0-48.0); LYMPH # 1.2 (1.2-3.4); LYMPH % 12.6 % (22.0-35.0); MEAN CELL VOLUME 70.9 fL (80.0-105.0); MEAN CORPUSCULAR HEMOGLOBIN 24.2 pg (25.0-35.0); MEAN CORPUSCULAR HGB CONC 34.2 g/dl (31.0-37.0); MONO # 0.5 (0.1-0.6); MONO % 5.8 % (1.0-6.0); PLATELET COUNT 155 10^3/uL (120.0-450.0); RED CELL DISTRIBUTION WIDTH 21.4 % (11.5-14.5); WHITE BLOOD COUNT 9.4 10^3/ul (4.5-11.0)
[2016-11-19 08:13] LABS: ALKALINE PHOSPHATASE 123 U/L (38-133); ALT/SGPT 367 U/L (7-56); AST/SGOT 71 U/L (15-39); BILIRUBIN,TOTAL 0.6 mg/dL (0.2-1.3); BLOOD UREA NITROGEN < 2 mg/dL (7-21); CALCIUM 8.3 mg/dL (8.4-10.5); CARBON DIOXIDE 25 mmol/L (21-33); CHLORIDE 98 mmol/L (95-110); GFR AFRICAN-AMERICAN > 60; GLUCOSE,RANDOM 111 mg/dL (70-110); SODIUM 132 mmol/L (132-148)
[2016-11-19 08:24] LABS: POTASSIUM 2.6 mmol/L (3.6-5.0)
[2016-11-19 08:25] LABS: FREE T4 2.44 ng/dL (0.78-2.19); T4 21.6 ug/dL (5.5-11.0)
[2016-11-19] MEDS ORDERED: Potassium Chloride 40 mEq/30 ml LIQ UD PO STA ×2 (08:31→11:02)
[2016-11-19 08:38] LABS: THYROID STIMULATING HORMONE < 0.02 mIU/mL (0.46-4.68)
--- NOTE | 2016-11-19 09:48 | CP.PCM.PN ---
Subjective - Date & Time of Evaluation Date of Evaluation: 11/19/16 Time of Evaluation: 09:00 - Subjective Subjective: Pt seen and examined and reports feeling a little better since admission. pt reports she has nause and vomiting but is alleviated with only IV medicatin. pt reports the dissolable zofran has a itter taste. Pt also states having multiple and large BM yesterday after not going for 10 days. Pt denies any burning with urination, urinary freuqency, urgency, diarrhea, lightheadness, dizzyness, CP, SOB, vb. Pt reports she did have pain with bowel movements and near the rectrum which has since resolved. pt denies any heart burn or upper abdominal pain, fvers or chills. Objective - Vital Signs/Intake and Output Vital Signs (last 24 hours): Temp Pulse Resp BP Pulse Ox 98.3 F 86 18 94/60 L 100 11/19/16 05:48 11/19/16 05:48 11/19/16 05:48 11/19/16 05:48 11/19/16 05:48 Intake and Output: 11/19/16 11/19/16 06:59 18:59 Intake Total 1625 Output Total 0 Balance 1625 - Medications Medications: Current Medications Acetaminophen (Tylenol 325mg Tab) 650 mg PO Q6H PRN PRN Reason: Pain, Mild (1-3) Last Admin: 11/18/16 16:50 Dose: 650 mg Ceftriaxone Sodium (Rocephin 1 Gram Ivpb) 1 gm in 100 mls @ 100 mls/hr IVPB DAILY [facility] PRN Reason: Protocol Last Admin: 11/18/16 11:11 Dose: 100 mls/hr Dextrose/Sodium Chloride (Dextrose 5%/0.9% Ns 1000 Ml) 1,000 mls @ 125 mls/hr IV .Q8H [facility] Last Admin: 11/19/16 02:53 Dose: 125 mls/hr Potassium Chloride (Potassium Chloride 10 Meq/100 Ml) 10 meq in 100 mls @ 100 mls/hr IVPB Q2H [facility] Stop: 11/19/16 11:29 Ondansetron HCl (Zofran Inj) 8 mg IVP Q6H PRN PRN Reason: Nausea/Vomiting Propylthiouracil (Propylthiouracil) 50 mg PO TID [facility] Last Admin: 06/16/17 17:47 Dose: Not Given - Labs Labs: 11/19/16 07:46 11/19/16 07:46 PT 11.9 Seconds (9.9-11.8) H 11/17/16 18:00 INR 1.10 (0.93-1.08) H 11/17/16 18:00 APTT 27.2 Seconds (23.7-30.8) 11/17/16 18:00 - Constitutional Appears: Well - Head Exam Head Exam: ATRAUMATIC, NORMAL INSPECTION - Eye Exam Eye Exam: EOMI, Normal appearance, PERRL Pupil Exam: NORMAL ACCOMODATION - ENT Exam ENT Exam: Mucous Membranes Dry - Neck Exam Neck Exam: Full ROM - Respiratory Exam Respiratory Exam: Clear to Ausculation Bilateral, NORMAL BREATHING PATTERN - Cardiovascular Exam Cardiovascular Exam: +S1, +S2 - GI/Abdominal Exam GI & Abdominal Exam: Soft Additional comments: non tender, no gurading, non distened, no RUQ/epigastric pain, negative medina' s sign, +BS - Extremities Exam Extremities Exam: Full ROM, Normal Inspection - Back Exam Back Exam: NORMAL INSPECTION - Neurological Exam Neurological Exam: Alert, Awake, CN II-XII Intact, Oriented x3 - Psychiatric Exam Psychiatric exam: Normal Affect, Normal Mood - Skin Skin Exam: Dry, Intact, Normal Color, Warm Assessment and Plan (1) Hypokalemia Status: Acute (2) Hyperemesis gravidarum Assessment & Plan: 1. N/V: Zofran 4mg IV q 6 hours--> pt advsied will try Zofran dissolvable for transition 2. Social Work Consut for Zofran Pump outpatient 3. Diet: Clears advance as tolerated 4. Dehydration: NS @ 125cc/hr 5. Hypokalemia: K 2.6 Replace K rider [id number] plust daily supplementation 6. Constipation/ Abdominal pain: resolved 7. Elevated LFTS: f/u hepatitis panel, trending down, likley 2/2 vomiting, however apprecite all consults/ recs including GI. D/c Tyeonol , Motrin if needed for pain 8. DVT prophylaxis; lower extremity scds 9. Hyperthyroid (typo from previous note of hypo) s/p Endocrine consult appreciated; s/p TFTS, continue PTU after Zofran due to vomiting Has Outpatient MFM / Perinatolgist Consult Dr Cervantes 4:30pm [facility] labos Status: Acute
[2016-11-19] MEDS: cefTRIAXone 1 gm 1 GM/100 ML BAG IVPB SCH (10:22)
--- NOTE | 2016-11-19 10:56 | CP.PCM.PN ---
<Mustapha Fierro - Last Filed: 11/19/16 10:52> Subjective - Date & Time of Evaluation Date of Evaluation: 11/19/16 Time of Evaluation: 08:50 - Subjective Subjective: Medicine Progress Note: Patient seen and examined at bedside. No acute events overnight. Patient states that her last episode of vomiting was twice yesterday. Pt also c/o diarrhea. Denies any concepcion, dizziness, f/c, sob, cp, palpitations, abd pain. Objective - Vital Signs/Intake and Output Vital Signs (last 24 hours): Temp Pulse Resp BP Pulse Ox 98.3 F 86 18 94/60 L 100 11/19/16 05:48 11/19/16 05:48 11/19/16 05:48 11/19/16 05:48 11/19/16 05:48 Intake and Output: 11/19/16 11/19/16 06:59 18:59 Intake Total 1625 Output Total 0 Balance 1625 - Medications Medications: Current Medications Ceftriaxone Sodium (Rocephin 1 Gram Ivpb) 1 gm in 100 mls @ 100 mls/hr IVPB DAILY [facility] PRN Reason: Protocol Last Admin: 11/19/16 10:22 Dose: 100 mls/hr Dextrose/Sodium Chloride (Dextrose 5%/0.9% Ns 1000 Ml) 1,000 mls @ 125 mls/hr IV .Q8H [facility] Last Admin: 11/19/16 02:53 Dose: 125 mls/hr Potassium Chloride (Potassium Chloride 10 Meq/100 Ml) 10 meq in 100 mls @ 100 mls/hr IVPB Q2H [facility] Stop: 11/19/16 11:29 Last Admin: 11/19/16 10:23 Dose: 100 mls/hr Potassium Chloride (Potassium Chloride 20 Meq/100 Ml) 20 meq in 100 mls @ 50 mls/hr IVPB Q2H [facility] Stop: 11/19/16 13:59 Ondansetron HCl (Zofran Inj) 8 mg IVP Q6H PRN PRN Reason: Nausea/Vomiting Last Admin: 11/19/16 10:24 Dose: 8 mg Ondansetron HCl (Zofran Odt) 8 mg PO Q8H PRN PRN Reason: Nausea/Vomiting Propylthiouracil (Propylthiouracil) 50 mg PO TID [facility] Last Admin: 11/19/16 10:23 Dose: 50 mg - Labs Labs: 11/19/16 07:46 11/19/16 07:46 PT 11.9 Seconds (9.9-11.8) H 11/17/16 18:00 INR 1.10 (0.93-1.08) H 11/17/16 18:00 APTT 27.2 Seconds (23.7-30.8) 11/17/16 18:00 - Constitutional Appears: No Acute Distress - Head Exam Head Exam: ATRAUMATIC, NORMAL INSPECTION, NORMOCEPHALIC - Eye Exam Eye Exam: EOMI, Normal appearance, PERRL Pupil Exam: NORMAL ACCOMODATION, PERRL - ENT Exam ENT Exam: Mucous Membranes Moist, Normal Exam - Neck Exam Neck Exam: Full ROM, Normal Inspection. absent: Lymphadenopathy - Respiratory Exam Respiratory Exam: Clear to Ausculation Bilateral, NORMAL BREATHING PATTERN. absent: Rales, Rhonchi, Wheezes - Cardiovascular Exam Cardiovascular Exam: REGULAR RHYTHM, RRR, +S1, +S2. absent: Murmur - GI/Abdominal Exam GI & Abdominal Exam: Soft, Normal Bowel Sounds. absent: Distended, Tenderness - Extremities Exam Extremities Exam: Full ROM, Normal Capillary Refill, Normal Inspection. absent : Joint Swelling, Pedal Edema - Back Exam Back Exam: NORMAL INSPECTION - Neurological Exam Neurological Exam: Alert, Awake, Oriented x3 - Psychiatric Exam Psychiatric exam: Normal Affect, Normal Mood - Skin Skin Exam: Dry, Intact, Normal Color, Warm Assessment and Plan - Assessment and Plan (Free Text) Assessment: 21 F @ 12 weeks gestation who presents to [facility] with persistent nausea and vomiting over 5-6 weeks, with the latest episode lasting > 1 week. She is being worked up for hyperemesis gravidarium. 1) Intractable nausea/emesis- 2/2 Hyperemesis gravidarium vs gallbladder pathology - CLD - Dextrose IVF 125/hr - Zofran ODT 8mg Q8H PRN -no leukocytosis, afebrile, so less likely appendicitis -Abd US: Extensive cholelithiasis without wall thickening or pericholecystic fluid -Initial UA suspicious for UTI but dirty catch due to many epithelial cells, repeat UA only notable for trace bacteria; cover with Rocephin given -Dextrose IVF 125/hr -Urine culture pending -Further management as per Primary 2) Hyperthyroid - elevated T4, low TSH - Endocrine consulted, Dr Hill: started PTU 50mg TID - F/u thyroid ab work up 3) hypokalemia likely 2/2 diarrhea - K is 2.6 - K riders 10meq x 2 and KCl 40mg PO stat x 2 - repeat K in afternoon -IV repletion for electrolytes as needed, continue to monitor - advised to no have prune juice 4) Cholithiasis r/o CBD stones - LFT trending down - F/u GI recs - Consider MRCP - Abd US: Extensive cholelithiasis without wall thickening or pericholecystic fluid - F/u hep panel 5) GI/DVT ppx Patient seen and discussed in detail with attending, Dr. Childs. <Mary Childs - Last Filed: 11/19/16 12:33> Objective - Vital Signs/Intake and Output Vital Signs (last 24 hours): Temp Pulse Resp BP Pulse Ox 98.5 F 84 18 90/58 L 100 11/19/16 12:00 11/19/16 12:00 11/19/16 12:00 11/19/16 12:00 11/19/16 05:48 Intake and Output: 11/19/16 11/19/16 06:59 18:59 Intake Total 1625 Output Total 0 Balance 1625 - Medications Medications: Current Medications Ceftriaxone Sodium (Rocephin 1 Gram Ivpb) 1 gm in 100 mls @ 100 mls/hr IVPB DAILY [facility] PRN Reason: Protocol Last Admin: 11/19/16 10:22 Dose: 100 mls/hr Dextrose/Sodium Chloride (Dextrose 5%/0.9% Ns 1000 Ml) 1,000 mls @ 125 mls/hr IV .Q8H [facility] Last Admin: 11/19/16 02:53 Dose: 125 mls/hr Potassium Chloride (Potassium Chloride 20 Meq/100 Ml) 20 meq in 100 mls @ 50 mls/hr IVPB Q2H [facility] Stop: 11/19/16 13:59 Ondansetron HCl (Zofran Inj) 8 mg IVP Q6H PRN PRN Reason: Nausea/Vomiting Last Admin: 11/19/16 10:24 Dose: 8 mg Ondansetron HCl (Zofran Odt) 8 mg PO Q8H PRN PRN Reason: Nausea/Vomiting Propylthiouracil (Propylthiouracil) 50 mg PO TID [facility] Last Admin: 11/19/16 10:23 Dose: 50 mg - Labs Labs: 11/19/16 07:46 11/19/16 07:46 PT 11.9 Seconds (9.9-11.8) H 11/17/16 18:00 INR 1.10 (0.93-1.08) H 11/17/16 18:00 APTT 27.2 Seconds (23.7-30.8) 11/17/16 18:00 Attending/Attestation - Attestation I have personally seen and examined this patient.: Yes I have fully participated in the care of the patient.: Yes I have reviewed all pertinent clinical information, including history, physical exam and plan: Yes Notes (Text): 11/19/16 12:25 Medicine Follow up Note 21 year old female, currently at 12 weeks gestation who presented with intractable nausea/vomiting secondary to hyperemesis gravidarum. Continue with iv fluids, zofran prn and diet as tolerated. Potassium today is low at 2.6; will replete and repeat. She was also found to have elevated LFTs for which GI is following. LFTs are trending down today. US abdomen showed extensive cholelithiasis without wall thickening or pericholecystic fluid. She is on iv ceftriaxone for UTI while awaiting Ucx. She is on PTU per endocrinology for hyperthyroidism. Endo is following. Mary Childs MD Hospitalist.
--- NOTE | 2016-11-19 16:18 | CARD ---
APPROVED REPORT EKG Measurement Heart [id number] PA [id number] <Conclusion> Normal sinus rhythm with sinus arrhythmia T wave abnormality, consider anterior ischemia Prolonged QT Abnormal ECG
--- NOTE | 2016-11-19 17:58 | PN ---
DATE: 11/19/2016 ROOM: 270. This is a 21-year-old female now 12 weeks age of gestation, presenting here with hyperemesis gravidar um with marked nausea, dyspepsia, intractable vomiting episodes and is being followed closely for end ocrine evaluation and management. She has recent onset of overt thyrotoxicosis with marked hyperthyr oidism both historically, clinically, and biochemically as noted thereof. Her oral intake remains qu ite variable with suboptimal meal portions at this time and persistent nausea and dyspepsia with epis odic bouts of vomiting as noted. Her latest chemistries today showed a BUN of less than 2, sodium 13 2, potassium 2.6, chloride 98, CO2 of 25, glucose 111 and creatinine 0.3. Her calcium is 8.3 with a glucose of 111. Her liver transaminases have been quite elevated, but they are improving and declini ng as noted today with an ALT of 367, AST of 71 and alkaline phosphatase of 123. Her repeat comprehe nsive thyroid studies, however, showed total T4 or thyroxine of 21.6 mcg/dL with a free T4 of 2.44 an d a TSH of less than 0.02. So at this time, we will modify her medical therapy for hyperthyroidism a nd increase the propylthiouracil or PTU to 100 mg p.o. b.i.d. after meals to start tonight. We will titrate incrementally as indicated to optimize metabolic control. The patient will clearly need the same dose regimen upon discharge and has to follow with a perinatologist for closer maternal mo nitoring. The thyroid antibodies i.e., the thyroid stimulating immunoglobulin and the thyroid peroxi dase antibody have been sent out to a reference lab, and this will confirm and/or negate the presence of underlying autoimmune thyroiditis. We will follow and advise accordingly. Saundra Hill MD cc: [id number] TT: 11/19/2016 17:57:06 Confirmation # [id number] Dictation # [id number] mn
--- NOTE | 2016-11-19 18:27 | PN ---
DATE: 11/19/2016 SUBJECTIVE: This patient was seen and evaluated earlier today. The patient's was at bedside. They have been complaining of multiple episodes of small frequent bowel movements. The patient was previously constipated for nearly 10 days, had 1 tablet of Dulcolax. Since then, she has been having continuous loose bowel movements, but they say the amount had been small, but frequent . She has urgency for defecation. The patient also nauseas after p.o. intake. PHYSICAL EXAMINATION: VITAL SIGNS: Temperature is 98.5, blood pressure is 90/58, pulse 80, respirations 18. HEENT: Atraumatic, anicteric. NECK: Supple. HEART: S1, S2 heard. LUNGS: Bilateral air entry present. ABDOMEN: Soft. There is no tenderness. EXTREMITIES: No edema, no cyanosis. LABORATORY DATA: Hemoglobin 10.4, hematocrit 30.4, WBC 9.4, platelets 155. LFTs showing downward trend, total bilirubin 0.6, AST 71, ALT 367. Free T4 is 2.44 high, TSH is low 0.02. IMPRESSION: 1. Acute diarrhea, multiple episodes. The differential diagnosis should include Clostridium difficile colitis.Pseudo diarrhea should considered another DD as the patient was constipated for more than 10 days. 2. An abnormal liver function tests, gallstones. Common bile duct normal, gallbladder wall normal,LFT improving. The differential diagnosis should include hepatitis, common bile duct stone, induced. 3. Hyperthyroidism. The patient is presently on PTU 4. Hypokalemia being supplemented. Magnesium level normal. 5 . Hyperemesis gravidarum, symptomatic controlled with Zofran presently, would start the patient on IV hydration. 6. Urinary tract infection. RECOMMENDATION: 1. The patient's urine culture reviewed shows corynebacterium species. The patient on antibiotic, has diarrhea, it may be a reasonable thing, would consider ID evaluation regarding the need to continue the antibiotics in view of possible CDAD.. Will discuss with the medical team regarding the antibiotics. 2. Stool for C. difficile. 3. Followup of the LFTs. 4. Supplement potassium. 5. We will continue to closely follow up her care. 6. Nutritional supplement, consider Boost. Thank you very much for allowing us to participate in the care of the patient. Zulma Ambrocio MD cc: [phone] TT: 11/19/2016 18:26:52 Confirmation # [id number] Dictation # [id number] jn ANNA
[2016-11-19 19:34] LABS: CALCIUM 8.5 mg/dL (8.4-10.5); CARBON DIOXIDE 24 mmol/L (21-33); CHLORIDE 99 mmol/L (98-107); GFR AFRICAN-AMERICAN > 60; GLUCOSE,RANDOM 95 mg/dL (70-110); POTASSIUM 3.3 mmol/L (3.6-5.0); SODIUM 131 mmol/L (132-148)
[2016-11-19 20:04] LABS: BLOOD UREA NITROGEN < 2 mg/dL (7-21)
[2016-11-19] MEDS ORDERED: Potassium Chloride 40 mEq/30 ml LIQ UD PO ONE (20:28)
[2016-11-19 21:30] LABS: PH,URINE 7.5 (4.7-8.0); URINE BILIRUBIN NEGATIVE (NEGATIVE); URINE BLOOD TRACE-LYSED (NEGATIVE); URINE GLUCOSE (UA) NEGATIVE (NEGATIVE); URINE KETONE NEGATIVE (NEGATIVE); URINE LEUKOCYTE ESTERASE NEGATIVE Leu/uL (NEGATIVE); URINE PROTEIN NEGATIVE mg/dL (<30 mg/dL); URINE UROBILINOGEN 0.2 E.U./dL (<1 E.U./dL)
[2016-11-19 21:32] LABS: URINE APPEARANCE CLEAR (CLEAR); URINE COLOR YELLOW (YELLOW)
[2016-11-19 21:47] LABS: URINE BACTERIA TRACE (NEG); URINE EPITHELIAL CELLS 0 - 2 /hpf (0-5); URINE RBC 0 - 2 /hpf (0-2); URINE WBC 0 - 2 /hpf (0-6)
[2016-11-20 07:49] LABS: ADD MANUAL DIFF? NO
[2016-11-20 08:20] LABS: BASO # 0.01 K/mm3 (0.0-2.0); BASO % 0.1 % (0.0-3.0); EOS % 0.1 % (1.5-5.0); GRAN # 5.58 (1.4-6.5); GRAN % 73.7 % (50.0-68.0); HEMATOCRIT 30.5 % (36.0-48.0); LYMPH # 1.4 (1.2-3.4); LYMPH % 17.9 % (22.0-35.0); MEAN CELL VOLUME 71.6 fL (80.0-105.0); MEAN CORPUSCULAR HEMOGLOBIN 23.9 pg (25.0-35.0); MEAN CORPUSCULAR HGB CONC 33.4 g/dl (31.0-37.0); MONO # 0.6 (0.1-0.6); MONO % 8.2 % (1.0-6.0); PLATELET COUNT 152 10^3/uL (120.0-450.0); RED CELL DISTRIBUTION WIDTH 22.1 % (11.5-14.5); WHITE BLOOD COUNT 7.6 10^3/ul (4.5-11.0)
[2016-11-20 08:20] LABS: ALKALINE PHOSPHATASE 115 U/L (38-133); ALT/SGPT 282 U/L (7-56); AST/SGOT 48 U/L (15-39); BILIRUBIN,TOTAL 0.6 mg/dL (0.2-1.3); BLOOD UREA NITROGEN < 2 mg/dL (7-21); CALCIUM 8.2 mg/dL (8.4-10.5); CARBON DIOXIDE 25 mmol/L (21-33); CHLORIDE 98 mmol/L (95-110); GFR AFRICAN-AMERICAN > 60; GLUCOSE,RANDOM 102 mg/dL (70-110); MAGNESIUM 1.5 mg/dL (1.7-2.2); POTASSIUM 3.1 mmol/L (3.6-5.0); SODIUM 132 mmol/L (132-148); TOTAL PROTEIN 5.8 g/dL (5.8-8.3)
[2016-11-20] MEDS ORDERED: Magnesium Sulfate 2 GM in Sodium Chloride 0.9% 100 ML IVPB ONE (09:53)
[2016-11-20] MEDS ORDERED: Sodium Chloride 0.9% 500 ML IV STA (09:55)
--- NOTE | 2016-11-20 11:13 | CP.PCM.PN ---
<Bari Cam - Last Filed: 11/20/16 11:13> Subjective - Date & Time of Evaluation Date of Evaluation: 11/20/16 Time of Evaluation: 11:10 - Subjective Subjective: Medicine progress note. Attending: Dr. Childs Pt seen and examined at bedside. No acute distress. Pt still having bouts of diarrhea, will check c diff. Some hypotension, will give fluid bolus. No fevers , chills. Objective - Vital Signs/Intake and Output Vital Signs (last 24 hours): Temp Pulse Resp BP Pulse Ox 99.2 F 80 18 82/49 L 100 11/19/16 23:46 11/20/16 09:53 11/19/16 23:46 11/20/16 09:53 11/19/16 23:46 Intake and Output: 11/20/16 11/20/16 06:59 18:59 Intake Total 740 Balance 740 - Medications Medications: Current Medications Dextrose/Sodium Chloride (Dextrose 5%/0.9% Ns 1000 Ml) 1,000 mls @ 125 mls/hr IV .Q8H [facility] Last Admin: 11/19/16 20:03 Dose: 125 mls/hr Potassium Chloride (Potassium Chloride 20 Meq/100 Ml) 20 meq in 100 mls @ 50 mls/hr IVPB ONCE ONE Stop: 11/20/16 11:51 Ondansetron HCl (Zofran Inj) 8 mg IVP Q6H PRN PRN Reason: Nausea/Vomiting Last Admin: 11/19/16 10:24 Dose: 8 mg Ondansetron HCl (Zofran Odt) 8 mg PO Q8H PRN PRN Reason: Nausea/Vomiting Last Admin: 11/19/16 15:31 Dose: 8 mg Propylthiouracil (Propylthiouracil) 100 mg PO BID [facility] Last Admin: 11/19/16 19:06 Dose: Not Given - Labs Labs: 11/20/16 07:47 11/20/16 07:45 PT 11.9 Seconds (9.9-11.8) H 11/17/16 18:00 INR 1.10 (0.93-1.08) H 11/17/16 18:00 APTT 27.2 Seconds (23.7-30.8) 11/17/16 18:00 - Constitutional Appears: Non-toxic, No Acute Distress - Head Exam Head Exam: ATRAUMATIC, NORMAL INSPECTION, NORMOCEPHALIC - Eye Exam Eye Exam: EOMI - ENT Exam ENT Exam: Mucous Membranes Moist - Neck Exam Neck Exam: Full ROM, Normal Inspection - Respiratory Exam Respiratory Exam: NORMAL BREATHING PATTERN. absent: Respiratory Distress - Cardiovascular Exam Cardiovascular Exam: +S1, +S2 - GI/Abdominal Exam GI & Abdominal Exam: Soft, Normal Bowel Sounds. absent: Tenderness - Neurological Exam Neurological Exam: Alert, Awake, Oriented x3 - Psychiatric Exam Psychiatric exam: Normal Affect, Normal Mood - Skin Skin Exam: Dry, Intact, Normal Color, Warm Assessment and Plan - Assessment and Plan (Free Text) Assessment: This is a 21 yo F @ 12 weeks gestation who presents to [facility] with persistent nausea and vomiting over 5-6 weeks, with the latest episode lasting > 1 week. She is being worked up for hyperemesis gravidarium. 1) Intractable nausea/emesis secondary to hyperemesis gravidarium vs gallbladder pathology - D5 NS IVF 125/hr - Zofran ODT 8mg Q8H PRN -no leukocytosis, afebrile, so less likely appendicitis -Abd US: Extensive cholelithiasis without wall thickening or pericholecystic fluid -Initial UA suspicious for UTI but dirty catch due to many epithelial cells, repeat UA only notable for trace bacteria; cover with Rocephin given -will discontinue abx today -Urine culture shows corynebacterium, likely contamination, repeat ua negative -Further management as per Primary -c diff pending 2) Hyperthyroid - elevated T4, low TSH - Endocrine consulted, Dr Hill: started PTU 100 bid - F/u thyroid ab work up 3) hypokalemia likely 2/2 diarrhea -repleted today with IV K -will continue to monitor 4) Cholithiasis r/o CBD stones - LFT trending down - GI workup in progress - Abd US: Extensive cholelithiasis without wall thickening or pericholecystic fluid - F/u hep panel 5) GI/DVT ppx Patient seen and discussed in detail with attending, Dr. Childs. <Mary Childs - Last Filed: 11/21/16 08:49> Objective - Vital Signs/Intake and Output Vital Signs (last 24 hours): Temp Pulse Resp BP Pulse Ox 98.6 F 88 20 86/57 L 99 11/21/16 06:00 11/21/16 06:00 11/21/16 06:00 11/21/16 06:00 11/21/16 06:00 - Medications Medications: Current Medications Dextrose/Sodium Chloride (Dextrose 5%/0.9% Ns 1000 Ml) 1,000 mls @ 125 mls/hr IV .Q8H [facility] Last Admin: 11/21/16 02:26 Dose: 125 mls/hr Ondansetron HCl (Zofran Inj) 8 mg IVP Q6H PRN PRN Reason: Nausea/Vomiting Last Admin: 11/20/16 22:13 Dose: 8 mg Ondansetron HCl (Zofran Odt) 8 mg PO Q8H PRN PRN Reason: Nausea/Vomiting Last Admin: 11/19/16 15:31 Dose: 8 mg Propylthiouracil (Propylthiouracil) 100 mg PO TID [facility] - Labs Labs: 11/20/16 07:47 11/21/16 07:40 PT 11.9 Seconds (9.9-11.8) H 11/17/16 18:00 INR 1.10 (0.93-1.08) H 11/17/16 18:00 APTT 27.2 Seconds (23.7-30.8) 11/17/16 18:00 Attending/Attestation - Attestation I have personally seen and examined this patient.: Yes I have fully participated in the care of the patient.: Yes I have reviewed all pertinent clinical information, including history, physical exam and plan: Yes Notes (Text): 11/20/16 Medicine Follow up Note 21 year old female, currently at 12 weeks gestation who presented with intractable nausea/vomiting secondary to hyperemesis gravidarum. Her nausea/vomiting has improved. She is on iv fluids and zofran prn. Continue with diet as tolerated. She still reports diarrhea and stool for cdif was collected and pending. She is slightly hypotensive this morning at 82/49 and will receive bolus. She has hypokalemia secondary to diarrhea. Will replete magnesium and potassium today. She was also found to have elevated LFTs for which GI is following. LFTs are trending down today. US abdomen showed extensive cholelithiasis without wall thickening or pericholecystic fluid. Her initial UA showed trace LE and some bacteria for which she was started on ceftriaxone. However UCx grew corynebacterium (likely contaminant) and repeat UA is negative. Will discontinue antibiotics. She denies any polyuria, dysuria or urgency. She is on PTU per endocrinology for hyperthyroidism. Endo is following. Mary Childs MD Hospitalist.
[2016-11-20] MEDS: Dextrose 5%/0.9% NS 1,000 ML IV SCH ×2 (11:46→18:20)
[2016-11-20 12:08] LABS: FREE T4 2.26 ng/dL (0.78-2.19); T4 20.7 ug/dL (5.5-11.0)
[2016-11-20 12:21] LABS: THYROID STIMULATING HORMONE < 0.02 mIU/mL (0.46-4.68)
[2016-11-20 12:45] VITALS: RESP 20
--- NOTE | 2016-11-20 22:04 | PN ---
DATE: 11/20/2016 SUBJECTIVE: This patient is feeling much better now. Her diarrhea has improved. Overall, she is fe eling much better. No complaints of any abdominal pain. Able to tolerate the liquids diet better. PHYSICAL EXAMINATION: VITAL SIGNS: Temperature is 98.8, pulse 85, blood pressure is 87/54. HEENT: Atraumatic, anicteric. NECK: Supple. HEART: S1, S2 heard. LUNGS: Bilateral air entry present. ABDOMEN: Soft. There is no tenderness. EXTREMITIES: No edema. LABORATORY DATA: Hemoglobin 10.2, hematocrit 30.5, WBC 7.6, platelets 152. Chemistry is essentially unremarkable except total ____. Magnesium is 1.5. LFTs are showing a downward trend. Alk phos is only 282. Magnesium is 1.5, being replaced. ____ T4 is elevated at 2.26. TSH is less than 0.02. IMPRESSION: This is a 21-year-old patient with a first trimester , admitted with vomiting. Problem is ____ vomiting, electrolyte abnormalities with hypokalemia, urinary tract ____. 1. An acute diarrhea is improved. The patient did not have today's antibiotics. Stool for Clostrid ium difficile pending. 2. Urinary tract infection. Repeat culture done. The initial culture ____ corynebacterium probable contaminant. Discussed with ____. Antibiotic was discontinued. 3. ____ LFTs, history of gallstones. CBD normal. LFTs improving. We will continue to follow up. 4. Hypokalemia and hypomagnesemia, being supplemented. 5. Hyperthyroidism. The patient on PTU. Endocrinological followup. The patient has an appointment to see a high risk technology methodology consultant. High risk will be ____. ____ has an appointment for high risk obstetrical consult technology methodology consultant appointment. Thank you very much for allowing us to participate in the care of the patient. Zulma Ambrocio MD cc: [phone] TT: 11/20/2016 16:46:10 Confirmation # [id number] Dictation # [id number]
[2016-11-21] MEDS: Dextrose 5%/0.9% NS 1,000 ML IV SCH ×2 (02:26→12:10)
[2016-11-21 06:15] VITALS: O2SAT 99
--- NOTE | 2016-11-21 08:00 | CON ---
DATE: 11/18/2016 ADDENDUM This is an addendum to gastrointestinal consultation report dictated by Vickie eVnces APN. This 21-ye ar-old patient who is 12 weeks , admitted with severe nausea, vomiting for more than a month' s duration. The patient was also recently in [facility], had IV hydration. Discharg ed home. The patient continues to have episodes of vomiting and abdominal pain. The patient also concepcion d a history of constipation. The patient also was found to be severely hypokalemic with a potassium of 2.9 and also hyponatremia with a sodium of 127. The patient's liver enzymes also found to be elev ated. Total bilirubin was 1.5 and alkaline phosphatase 160. The patient did have an ultrasound scan of the abdomen done, which showed gallstones, but common bile duct was normal. Followup LFTs shows a downward trend. The patient still has some episodes of vomiting. On examination abdomen is soft. There is a mild tenderness on deep palpation present in the epigastr ic area. There is no rebound or guarding. Discussed with the patient's who was at bedside. The patient's TSH also found to be low. Sh jose was seen by Dr. Hill, engineering manager electronics, notes reviewed. The patient was started on ____. The patien t did have 10 days of constipation, now has rectal pain, probably small fissure. She started moving her bowels after Dulcolax tablets. RECOMMEND: 1. Regular use of stool softeners. The patient would benefit from soft fiber intake with increased fluid intake. ____ constipation. 2. Followup of the LFTs. We will continue to closely follow up her care. Zulma Ambrocio MD cc: [phone] TT: 11/19/2016 09:19:35 Confirmation # [id number] Dictation # [id number] jn
[2016-11-21 08:20] LABS: ALKALINE PHOSPHATASE 112 U/L (38-133); ALT/SGPT 239 U/L (7-56); AST/SGOT 48 U/L (15-39); BILIRUBIN,TOTAL 0.7 mg/dL (0.2-1.3); CALCIUM 8.3 mg/dL (8.4-10.5); CARBON DIOXIDE 26 mmol/L (21-33); CHLORIDE 99 mmol/L (98-107); GFR AFRICAN-AMERICAN > 60; GLUCOSE,RANDOM 98 mg/dL (70-110); POTASSIUM 3.1 mmol/L (3.6-5.0); SODIUM 132 mmol/L (132-148); TOTAL PROTEIN 5.7 g/dL (5.8-8.3)
--- NOTE | 2016-11-21 08:23 | PN ---
DATE: 11/20/2016 LOCATION: Room 270. This is a 21-year-old female admitted for management of dehydration and marked hypokalemia as no peggy. She continues daily. sodium 142, potassium 3.1 . The thyroid studies done yest erday 31.6 mcg/dL repeat thyroid indices, and we will adjust her dose regimen accordingly. In the meantime, we will continue the modified and higher dosing of the PTU or propylthiouracil give n as 100 mg p.o. b.i.d. after meals to start today. We will titrate incrementally as indicated to op timize metabolic control. She may eventually need a t.i.d. dosing for the PTU as indicated to optim ize metabolic control. The thyroid levels can be done today. confirmation whether she needs ex tra dosing day. We will obtain serial chemistry and serial thyroid studies and adjust her dose regimen. The and the maternal and implications have been discussed with the at [facility]. They will follow with their family heel compressor upon discharge as noted. We will follow up. Saundra Hill MD cc: [id number] TT: 11/20/2016 14:47:11 Confirmation # [id number] Dictation # [id number] mn
[2016-11-21 08:25] LABS: BLOOD UREA NITROGEN < 2 mg/dL (7-21)
[2016-11-21 08:42] LABS: FREE T4 1.99 ng/dL (0.78-2.19); T4 19.7 ug/dL (5.5-11.0)
[2016-11-21 08:55] LABS: THYROID STIMULATING HORMONE < 0.02 mIU/mL (0.46-4.68)
[2016-11-21] MEDS ORDERED: Potassium Chloride 40 mEq/30 ml LIQ UD PO STA (09:03)
[2016-11-21 11:57] VITALS: BP 91/57; PULSE 82; TEMP 98.3
--- NOTE | 2016-11-21 13:10 | CP.PCM.PN ---
Subjective - Date & Time of Evaluation Date of Evaluation: 11/21/16 Time of Evaluation: 06:00 - Subjective Subjective: Pt reports feeling better, non compliant with medications, Pt and told mutiple times need to transition from IV zofran to sublingual or oral dissentgating tablets until zofran pump approved / arrived by insurance company . pt reqesting discharge home. Pt denies any loose bm or diarrhea. pt denies any vomkting tolerating some liquids and soft food. pt denies any burning with urinatin, frequency, pain, fevers, chills, headaches, or nause. Objective - Vital Signs/Intake and Output Vital Signs (last 24 hours): Temp Pulse Resp BP Pulse Ox 98.3 F 82 20 91/57 L 99 11/21/16 11:56 11/21/16 11:56 11/21/16 11:56 11/21/16 11:56 11/21/16 06:00 - Medications Medications: Current Medications Dextrose/Sodium Chloride (Dextrose 5%/0.9% Ns 1000 Ml) 1,000 mls @ 125 mls/hr IV .Q8H DOMINIQUE Last Admin: 11/21/16 12:10 Dose: 125 mls/hr Potassium Chloride (Potassium Chloride 20 Meq/100 Ml) 20 meq in 100 mls @ 50 mls/hr IVPB Q2H DOMINIQUE Stop: 11/21/16 13:14 Last Admin: 11/21/16 12:10 Dose: 50 mls/hr Ondansetron HCl (Zofran Inj) 8 mg IVP Q6H PRN PRN Reason: Nausea/Vomiting Last Admin: 11/21/16 09:52 Dose: 8 mg Ondansetron HCl (Zofran Odt) 8 mg PO Q8H PRN PRN Reason: Nausea/Vomiting Last Admin: 11/21/16 11:35 Dose: 8 mg Propylthiouracil (Propylthiouracil) 100 mg PO TID DOMINIQUE Last Admin: 11/21/16 10:45 Dose: 100 mg - Labs Labs: 11/20/16 07:47 11/21/16 07:40 PT 11.9 Seconds (9.9-11.8) H 11/17/16 18:00 INR 1.10 (0.93-1.08) H 11/17/16 18:00 APTT 27.2 Seconds (23.7-30.8) 11/17/16 18:00 - Constitutional Appears: Well - Head Exam Head Exam: ATRAUMATIC - Eye Exam Eye Exam: EOMI, Normal appearance Pupil Exam: NORMAL ACCOMODATION - ENT Exam ENT Exam: Mucous Membranes Moist, Normal Exam - Neck Exam Neck Exam: Full ROM, Normal Inspection - Respiratory Exam Respiratory Exam: Clear to Ausculation Bilateral - Cardiovascular Exam Cardiovascular Exam: REGULAR RHYTHM, +S1, +S2 - GI/Abdominal Exam GI & Abdominal Exam: Soft, Normal Bowel Sounds Additional comments: NT/ND no guaridng, no reboudn tenderness no rigidyt - Extremities Exam Extremities Exam: Full ROM, Normal Capillary Refill Assessment and Plan (1) Hypokalemia Assessment & Plan: 1. N/V improved: pt tolerating soft diet. ODT Zofran pressribed. s/p hospitalist consut appreciated s/p Case Manament consult: spoke iwmaite multiple times in regards to obtainig approval ofr zofran pump 2. Hyperthryoid: PTU 100mg BID , s/p endocrine consult appreciated HAS [facility] APPOINTMENT TODAY 4pm 3. Abominal pain: resolved 4. Elevated LFTS: trending down, negative hepatitis panel, will f/u O/P with GI. s/p GI consult appreciated 5. Diarrhea: resolved, c diff pending, will call lab to expedite reslts 6. D/c HOme, precautions givne, [facility] appointmetn today, f/u OBGYN Wedneday. If unable to tolearte po at home or continued n/v advsied return to immediatelly to ER will f/u Case managment re: status of zofran pump 7. UTI s/p Roecphin s/p urine cx Status: Acute (2) Hyperemesis gravidarum Status: Acute
--- NOTE | 2016-11-21 13:14 | CP.PCM.DIS ---
Provider - Provider Date of Admission: 11/17/16 20:32 Attending physician: Megha Mackenzie MD Primary care physician: Stacy Flowers MD Time Spent in preparation of Discharge (in minutes): 60 Diagnosis - Discharge Diagnosis (1) Hypokalemia Status: Acute (2) Hyperemesis gravidarum Status: Acute Hospital Course - Lab Results Lab Results: Micro Results 11/19/16 21:15 Urine Urine Culture - Final No Growth (<1,000 CFU/ML) Most Recent Lab Values WBC 7.6 10^3/ul (4.5-11.0) 11/20/16 07:47 RBC 4.26 10^6/uL (3.5-6.1) 11/20/16 07:47 Hgb 10.2 gm/dL (12.0-16.0) L 11/20/16 07:47 Hct 30.5 % (36.0-48.0) L 11/20/16 07:47 MCV 71.6 fL (80.0-105.0) L 11/20/16 07:47 MCH 23.9 pg (25.0-35.0) L 11/20/16 07:47 MCHC 33.4 g/dl (31.0-37.0) 11/20/16 07:47 RDW 22.1 % (11.5-14.5) H 11/20/16 07:47 Plt Count 152 10^3/uL (120.0-450.0) 11/20/16 07:47 Gran % 73.7 % (50.0-68.0) H 11/20/16 07:47 Lymph % (Auto) 17.9 % (22.0-35.0) L 11/20/16 07:47 [place] % (Auto) 8.2 % (1.0-6.0) H 11/20/16 07:47 Eos % (Auto) 0.1 % (1.5-5.0) L 11/20/16 07:47 Baso % (Auto) 0.1 % (0.0-3.0) 11/20/16 07:47 Gran # 5.58 (1.4-6.5) 11/20/16 07:47 Lymph # 1.4 (1.2-3.4) 11/20/16 07:47 [place] # 0.6 (0.1-0.6) 11/20/16 07:47 Eos # 0.0 (0.0-0.7) 11/20/16 07:47 Baso # 0.01 K/mm3 (0.0-2.0) 11/20/16 07:47 PT 11.9 Seconds (9.9-11.8) H 11/17/16 18:00 INR 1.10 (0.93-1.08) H 11/17/16 18:00 APTT 27.2 Seconds (23.7-30.8) 11/17/16 18:00 Sodium 132 mmol/L (132-148) 11/21/16 07:40 Potassium 3.1 mmol/L (3.6-5.0) L 11/21/16 07:40 Chloride 99 mmol/L (98-107) 11/21/16 07:40 Carbon Dioxide 26 mmol/L (21-33) 11/21/16 07:40 Anion Gap 10 (10-20) 11/21/16 07:40 BUN < 2 mg/dL (7-21) L 11/21/16 07:40 Creatinine 0.3 mg/dL (0.5-1.4) L 11/21/16 07:40 Est GFR ( Amer) > 60 11/21/16 07:40 Est GFR (Non-Af Amer) > 60 11/21/16 07:40 POC Glucose (mg/dL) 107 mg/dL (65-110) 11/19/16 16:19 Random Glucose 98 mg/dL (70-110) 11/21/16 07:40 Hemoglobin A1c 4.8 % (4.2-6.5) 11/20/16 07:45 Calcium 8.3 mg/dL (8.4-10.5) L 11/21/16 07:40 Phosphorus 4.0 mg/dL (2.5-4.5) 11/17/16 18:00 Magnesium 1.9 mg/dL (1.7-2.2) 11/21/16 07:40 Total Bilirubin 0.7 mg/dL (0.2-1.3) 11/21/16 07:40 Direct Bilirubin 0.7 mg/dL (0.0-0.4) H 11/18/16 06:30 GGT 64 U/L (8-78) 11/21/16 07:40 AST 48 U/L (15-39) H 11/21/16 07:40 ALT 239 U/L (7-56) H 11/21/16 07:40 Alkaline Phosphatase 112 U/L (38-133) 11/21/16 07:40 Total Protein 5.7 g/dL (5.8-8.3) L 11/21/16 07:40 Albumin 2.8 g/dL (3.0-4.8) L 11/21/16 07:40 Globulin 2.9 gm/dL 11/21/16 07:40 Albumin/Globulin Ratio 1.0 (1.1-1.8) L 11/21/16 07:40 Free T4 1.99 ng/dL (0.78-2.19) 11/21/16 07:40 Thyroxine (T4) 19.7 ug/dL (5.5-11.0) H 11/21/16 07:40 TSH 3rd Generation < 0.02 mIU/mL (0.46-4.68) L 11/21/16 07:40 Urine Color Yellow (YELLOW) 11/19/16 21:15 Urine Appearance Clear (CLEAR) 11/19/16 21:15 Urine pH 7.5 (4.7-8.0) 11/19/16 21:15 Ur Specific [place] 1.015 (1.005-1.035) 11/19/16 21:15 Urine Protein Negative mg/dL (<30 mg/dL) 11/19/16 21:15 Urine Glucose (UA) Negative mg/dL (NEGATIVE) 11/19/16 21:15 Urine Ketones Negative mg/dL (NEGATIVE) 11/19/16 21:15 Urine Blood Trace-lysed (NEGATIVE) H 11/19/16 21:15 Urine Nitrate Negative (NEGATIVE) 11/19/16 21:15 Urine Bilirubin Negative (NEGATIVE) 11/19/16 21:15 Urine Urobilinogen 0.2 E.U./dL (<1 E.U./dL) 11/19/16 21:15 Ur Leukocyte Esterase Negative K[place]/uL (NEGATIVE) 11/19/16 21:15 Urine RBC 0 - 2 /hpf (0-2) 11/19/16 21:15 Urine WBC 0 - 2 /hpf (0-6) 11/19/16 21:15 Ur Epithelial Cells 0 - 2 /hpf (0-5) 11/19/16 21:15 Urine Bacteria Trace (NEG) 11/19/16 21:15 Hepatitis A IgM Ab Negative (NEGATIVE) 11/19/16 07:46 Hep Bs Antigen Negative (NEGATIVE) 11/19/16 07:46 Hep B Core IgM Ab Negative (NEGATIVE) 11/19/16 07:46 Hepatitis C Antibody Negative (NEGATIVE) 11/19/16 07:46 - Hospital Course Hospital Course: 21 y/o @ 12wks admiteted for severe hyperemsis gradivum failed po diclegis , zofran and vitmain b 6 outpatient with over 10 pound weight loss iwth UTI unable to tolerate po abnitivvo admitted, improving , tolerating soft diet, n/v improved. uti trated with rocephin s/p urine cx constiaption s/p rectal suppostory , resolved elveated lft, trending down, hepatiits paneal negative, s/p abdo us with cholelithia s/p gi consult, will f/u o/p case manamgent f/u re: zofran pump - Date & Time of H&P Date of H&P: 11/18/16 Discharge Exam - Head Exam Head Exam: ATRAUMATIC Additional comments: see progress notes Discharge Plan - Follow Up Plan Condition: FAIR Disposition: HOME/ ROUTINE Instructions: Hypokalemia (DC), Hypokalemia (GEN) Referrals: Stacy Flowers MD [Primary Care Provider] -
--- NOTE | 2016-11-21 14:25 | CP.PCM.PN ---
<Mustapha Fierro - Last Filed: 11/21/16 14:22> Subjective - Date & Time of Evaluation Date of Evaluation: 11/21/16 Time of Evaluation: 09:00 - Subjective Subjective: Medicine progress note: Pt seen and examined at bedside. No acute events overnight. Pt had a 2 episodes of diarrhea (6am and last night), which is much improved . One episode of vomiting yesterday. Tolerating small amount of PO diet. Denies any f/c, concepcion, sob, cp, abd pain, urinary changes. Objective - Vital Signs/Intake and Output Vital Signs (last 24 hours): Temp Pulse Resp BP Pulse Ox 98.3 F 82 20 91/57 L 99 11/21/16 11:56 11/21/16 11:56 11/21/16 11:56 11/21/16 11:56 11/21/16 06:00 - Medications Medications: Current Medications Dextrose/Sodium Chloride (Dextrose 5%/0.9% Ns 1000 Ml) 1,000 mls @ 125 mls/hr IV .Q8H DOMINIQUE Last Admin: 11/21/16 12:10 Dose: 125 mls/hr Ondansetron HCl (Zofran Inj) 8 mg IVP Q6H PRN PRN Reason: Nausea/Vomiting Last Admin: 11/21/16 09:52 Dose: 8 mg Ondansetron HCl (Zofran Odt) 8 mg PO Q8H PRN PRN Reason: Nausea/Vomiting Last Admin: 11/21/16 11:35 Dose: 8 mg Propylthiouracil (Propylthiouracil) 100 mg PO TID DOMINIQUE Last Admin: 11/21/16 10:45 Dose: 100 mg - Labs Labs: 11/20/16 07:47 11/21/16 07:40 PT 11.9 Seconds (9.9-11.8) H 11/17/16 18:00 INR 1.10 (0.93-1.08) H 11/17/16 18:00 APTT 27.2 Seconds (23.7-30.8) 11/17/16 18:00 - Constitutional Appears: No Acute Distress - Head Exam Head Exam: ATRAUMATIC, NORMAL INSPECTION, NORMOCEPHALIC - Eye Exam Eye Exam: EOMI, Normal appearance, PERRL Pupil Exam: NORMAL ACCOMODATION, PERRL - Neck Exam Neck Exam: Full ROM, Normal Inspection. absent: Lymphadenopathy - Respiratory Exam Respiratory Exam: Clear to Ausculation Bilateral, NORMAL BREATHING PATTERN. absent: Rales, Rhonchi, Wheezes - Cardiovascular Exam Cardiovascular Exam: REGULAR RHYTHM, +S1, +S2. absent: Murmur - GI/Abdominal Exam GI & Abdominal Exam: Soft, Normal Bowel Sounds. absent: Distended, Tenderness - Extremities Exam Extremities Exam: Full ROM, Normal Capillary Refill, Normal Inspection. absent : Joint Swelling, Pedal Edema - Back Exam Back Exam: NORMAL INSPECTION - Neurological Exam Neurological Exam: Alert, Awake, CN II-XII Intact, Normal Gait, Oriented x3 - Psychiatric Exam Psychiatric exam: Normal Affect, Normal Mood - Skin Skin Exam: Dry, Intact, Normal Color, Warm Assessment and Plan - Assessment and Plan (Free Text) Assessment: This is a 21 yo F @ 12 weeks gestation who presents to [facility] with persistent nausea and vomiting over 5-6 weeks, with the latest episode lasting > 1 week. She is being worked up for hyperemesis gravidarium. 1) Intractable nausea/emesis secondary to hyperemesis gravidarium vs gallbladder pathology -no leukocytosis, afebrile, - D5 NS IVF 125/hr - Zofran ODT 8mg Q8H PRN - F/u OBGYN recs -Abd US: Extensive cholelithiasis without wall thickening or pericholecystic fluid -Initial UA suspicious for UTI but dirty catch due to many epithelial cells, repeat UA only notable for trace bacteria; cover with Rocephin given -will discontinue abx today -Urine culture shows corynebacterium, likely contamination, repeat ua negative -Further management as per Primary -f/u c diff pending, antibiotics d/radha 2) Hyperthyroid - elevated T4, low TSH - Endocrine consulted, Dr Hill: started PTU 100mg bid - F/u thyroid ab work up 3) hypokalemia - K of 3.1 - KCL 40meq PO stat and 20meq KCL rider x 2 stat - f/u afternoon BMP 4) Cholithiasis r/o CBD stones - LFT continuously trending down - GI workup in progress - Abd US: Extensive cholelithiasis without wall thickening or pericholecystic fluid - hep panel - negative 5) GI/DVT ppx Patient seen and discussed in detail with attending, Dr. Childs. <Mary Childs - Last Filed: 11/21/16 15:00> Objective - Vital Signs/Intake and Output Vital Signs (last 24 hours): Temp Pulse Resp BP Pulse Ox 98.3 F 82 20 91/57 L 99 11/21/16 11:56 11/21/16 11:56 11/21/16 11:56 11/21/16 11:56 11/21/16 06:00 - Medications Medications: Current Medications Dextrose/Sodium Chloride (Dextrose 5%/0.9% Ns 1000 Ml) 1,000 mls @ 125 mls/hr IV .Q8H DOMINIQUE Last Admin: 11/21/16 12:10 Dose: 125 mls/hr Ondansetron HCl (Zofran Inj) 8 mg IVP Q6H PRN PRN Reason: Nausea/Vomiting Last Admin: 11/21/16 09:52 Dose: 8 mg Ondansetron HCl (Zofran Odt) 8 mg PO Q8H PRN PRN Reason: Nausea/Vomiting Last Admin: 11/21/16 11:35 Dose: 8 mg Propylthiouracil (Propylthiouracil) 100 mg PO TID DOMINIQUE Last Admin: 11/21/16 10:45 Dose: 100 mg - Labs Labs: 11/20/16 07:47 11/21/16 07:40 PT 11.9 Seconds (9.9-11.8) H 11/17/16 18:00 INR 1.10 (0.93-1.08) H 11/17/16 18:00 APTT 27.2 Seconds (23.7-30.8) 11/17/16 18:00 Attending/Attestation - Attestation I have personally seen and examined this patient.: Yes I have fully participated in the care of the patient.: Yes I have reviewed all pertinent clinical information, including history, physical exam and plan: Yes Notes (Text): 11/21/16 14:54 Medicine Follow up Note 21 year old female, currently at 12 weeks gestation who presented with intractable nausea/vomiting secondary to hyperemesis gravidarum. She was then also complaining of loose stools for past few days. She reports her nausea/vomiting and diarrhea now improved. They are requesting to be discharged home today and try to advance diet as tolerated at home. She is on iv fluids and zofran prn. senior risk manager evaluation was requested for possible zofran pump. Stool for cdiff is still pending; called lab and it should be back today. Her blood pressure has been low normal which may be her baseline. She denies any dizziness or lightheadedness and reports she is ambulating. Potassium is 3.1 which we will replete. If she is discharged home today may be worthwhile to supplement with po potassium if she still has loose stools. Would await cdiff study. She was also found to have elevated LFTs which have improved. GI is following. US abdomen showed extensive cholelithiasis without wall thickening or pericholecystic fluid. She is on PTU per endocrinology for hyperthyroidism. Endo is following. Mary Childs MD Hospitalist.
--- NOTE | 2016-11-21 16:23 | PN ---
DATE: 11/21/2016 ROOM: 270. SUBJECTIVE: This is a 21-year-old female with marked hyperthyroidism both historically, clinically a nd biochemically, presenting here with hyperemesis gravidarum and dehydration and is being followed c jhonatanly now for metabolic management. Her oral intake remains suboptimal, but has improved since admi ssion with intake of smaller portions of the soft diet as given with preference for the oral suppleme nts ordered. She remains clinically and biochemically hyperthyroid at this time, but has improved ac cordingly since admission. Her latest chemistry showed a BUN of 2, sodium 132, potassium 3.1, chlori de 99, CO2 26, glucose 98 and creatinine 0.3. Her repeat thyroid study showed a total T4 or thyroxin e level of 19.7 with a TSH of less than 0.02 and a free T4 of 1.99. This is a remarkable improvement since the initial admitting abnormal thyroid studies. Her liver transaminases are also much lower s cristal admission as noted. At this time, we will titrate once again to a higher dose regimen. Her pro pylthiouracil or PTU to 100 mg p.o. t.i.d. after meals as ordered and this will be started today as g iven. Will continue the IV hydration as ordered and obtain serial chemistries and supplement accordi ngly as needed. The pharmacist resource economist somehow has been questioning the current medical management o f her hyperthyroid condition and this actually and this medication, PTU, is actually the only availab le safe therapy to be given in for management of hyperthyroidism in . The benefit s far outweigh the risks as noted since this is the only available medical therapy for hyperthyroidis m in the world. There is no role for radioactive iodine certainly not in . She will be fol lowed by a perinatologist upon discharge for closer maternal and management. Saundra Hill MD cc: [phone] TT: 11/21/2016 16:22:34 Confirmation # [id number] Dictation # [id number] mn
--- NOTE | 2016-11-22 08:43 | PN ---
DATE: 11/21/2016 ADDENDUM SUBJECTIVE: This patient was seen and evaluated earlier. Diarrhea has decreased. The patient was f eeling better. The patient's LFTs continue to show a downward trend. Potassium is low, being supple mented. This is an addendum to the GI progress report dictated by Vickie Vences APN. The patient is planned to be discharged today. Recommend to follow up the LFTs. The patient has sto ol for Clostridium difficile, was negative. Urine culture also came back as negative. Thank you very much for allowing us to participate in the care of the patient. Zulma Ambrocio MD cc: [phone] TT: 11/21/2016 20:08:22 Confirmation # [id number] Dictation # [id number] cesar
--- NOTE | 2016-11-22 08:43 | PN ---
DATE: 11/21/2016 Seen and examined at the bedside late this morning. The patient has been at the bedside as well. No acute overnight events are reported. The patient had a bowel movement today. Denies any watery sto ols, more of a "mushy stool." No reports of any bleeding. Able to tolerate very little intake. Sti ll gets nausea. No reports of any vomiting. Denies any abdominal pain. The patient is getting pota ssium replacements. VITAL SIGNS: Temperature is 98.6, blood pressure 86/57, pulse 88, respirations 20, 99% room air. LABORATORIES: Sodium 132, K 3.1, BUN is less than 2, creatinine is 0.3. Her total bilirubin is 0.9, magnesium 1.9, GGT is 64, AST 48, ALT 239, alk phos is 112. Free T4 is 1.99. This is improved. T4 is 19.7 and TSH is 0.02. PHYSICAL EXAMINATION: HEENT: Sclera is anicteric. NECK: Supple. CARDIAC: S1, S2. LUNG SOUNDS: Clear. ABDOMEN: With bowel sounds, soft, nontender. No rebound or guarding. EXTREMITIES: No edema. NEUROLOGIC: Awake, alert, and oriented. ASSESSMENT: This is a 21-year-old patient, 12 weeks , in first trimester, admitted with hype remesis gravidarum. The patient with electrolyte imbalance, hypokalemia. Also with urinary tract in fection, noted to have elevated liver enzymes. The patient with gallstones, but common bile duct is normal. Her LFTs are improving. The patient originally with constipation, given laxatives, now with acute diarrhea which has improved. The patient's stool for Clostridium difficile is pending. The p atient also noted with hypothyroidism. The patient is on PTU. PLAN: Continue diet as tolerated and continue to monitor liver enzymes. The patient is likely going to be discharged home today to follow up with a highwall drill operator/GYN. The patient is being followed by endocrinology as well, is on PTU, currently getting IV hydration. The patient was seen and case discussed with Dr. Ambrocio. Vickie ARORA cc: [phone] TT: 11/21/2016 14:08:17 Confirmation # [id number] Dictation # [id number] en
[2016-11-22 18:16] LABS: TSI <89 % baseline (<140)
== END 2016-11-21 15:35 | disposition home or self-care (01) | DRG 781 ==
LOC: ED 17:04 → ERH 20:32 → 2RSO 23:46
PROVIDERS: ADMIT Obstetrics & Gynecology; ATTEND Obstetrics & Gynecology
DX: O21.1 Hyperemesis gravidarum with metabolic disturbance (principal); R64 Cachexia; O23.41 Unspecified infection of urinary tract in pregnancy, first trimester; O26.611 Liver and biliary tract disorders in pregnancy, first trimester; E87.1 Hypo-osmolality and hyponatremia; E87.6 Hypokalemia; O99.281 Endocrine, nutritional and metabolic diseases complicating pregnancy, first trimester; E86.0 Dehydration; K80.20 Calculus of gallbladder without cholecystitis without obstruction; E83.42 Hypomagnesemia; E05.90 Thyrotoxicosis, unspecified without thyrotoxic crisis or storm; K62.89 Other specified diseases of anus and rectum; K59.00 Constipation, unspecified; O99.611 Diseases of the digestive system complicating pregnancy, first trimester; Z3A.12 12 weeks gestation of pregnancy; Z91.14 Patient's other noncompliance with medication regimen; R40.2412 Glasgow coma scale score 13-15, at arrival to emergency department; R19.7 Diarrhea, unspecified